=== PATIENT | female | born 1950 | race African-American/Black ===

== ENCOUNTER → 2020-07-24 10:23 | Outpatient (CLI) | payer MEDICARE, SELFPAY ==
--- NOTE | ~2020-07-24 | DEXA_ITS ---
Bone Density Report Name: Kelli Matt Age: 70 Sex: Female Ethnicity: White Date of : 1950 Indication: postmenopausal; screening for osteoporosis; parental hip fracture; Referring Provider: ANAIS PALAM Study: Bone densitometry was performed. Exam Date: July 24, 2020 Accession number: [id number] Bone Density: Region BMD T-score Z-score Classification AP Spine (L1-L4) 1.088 0.4 2.5 Normal Femoral Neck (Left) 0.772 -0.7 1.1 Normal Total Hip (Left) 0.913 -0.2 1.2 Normal Femoral Neck (Right) 0.789 -0.5 1.2 Normal Total Hip (Right) 0.902 -0.3 1.1 Normal Total Hip Mean 0.908 -0.3 1.2 Normal World Health Organization criteria for BMD impression classify patients as: Normal (T-score at or above -1.0), Osteopenia (T-score between -1.0 and -2.5), or Osteoporosis (T-score at or below -2.5). 10-year Fracture Risk: FRAX not reported because: All T-scores for Spine Total, Hip Total, Femoral Neck at or above -1.0 Previous Exams: Region Exam Age BMD T-score BMD Change BMD Change Date g/cm2 vs Baseline vs Previous AP Spine(L1-L4) 07/24/2020 70 1.088 0.4 0.056* 0.056* 05/20/2018 68 1.033 -0.1 Total Hip(Left) 07/24/2020 70 0.913 -0.2 -0.017 -0.017 05/20/2018 68 0.930 -0.1 Total Hip(Right) 07/24/2020 70 0.902 -0.3 0.009 0.009 05/20/2018 68 0.893 -0.4 *Denotes significance at 95% confidence level, LSC for AP Spine = 0.022 g/cm2, LSC for Total Hip = 0.027 g/cm2 Clinical Information Provided by Patient: Parent has had a hip fracture Patient maximum height was 67 Menopause Age: 54 Drinks caffeinated beverages Onset of menses at age 12 Number of children 2 Impression: The patient has normal bone mass. The patient has risk factors, including: parental hip fracture. No significant bone loss was observed. Discussion: BONE DENSITY IS ABOVE THE MINIMUM DESIRABLE LEVEL AT ALL SKELETAL SITES TESTED. This patient?s bone mineral density is above the minimum desirable level (T-score -1.0 or better) at all sites measured. The patient should follow a healthful lifestyle (good nutrition with adequate calcium and vitamin D, and appropriate weight-bearing exercise). Follow-Up: Consider repeating this study in 5 years or sooner if there is some new clinical indication. Reported by: [facility] on 07/24/2020 11:04:00 AM. Reviewed,
== END ==
PROVIDERS: PCP Emergency Medicine; Visit Provider Emergency Medicine
DX: N95.9 Unspecified menopausal and perimenopausal disorder (principal)
CPT/HCPCS: 77080

== ENCOUNTER 2020-07-25 06:39 | Outpatient (NON) | payer MEDICARE, SELFPAY ==
[2020-07-25 23:55] LABS: SARS-CoV-2 RNA PCR Negative
== END 2020-07-25 06:40 ==
PROVIDERS: PCP Emergency Medicine; Visit Provider Emergency Medicine
DX: Z20.828 Contact with and (suspected) exposure to other viral communicable diseases (principal); R68.89 Other general symptoms and signs
CPT/HCPCS: 87635; C9803; U0003

== ENCOUNTER 2020-10-12 14:58 | Outpatient (CLI) | payer MEDICARE, SELFPAY ==
--- NOTE | ~2020-10-12 | MR_ITS ---
EXAMINATION: MR knee RT wo con DATE: 10/12/2020 16:05 INDICATION: Right knee pain with prior horn lateral meniscus. TECHNIQUE: Magnetic resonance imaging (MRI) of the right knee was performed without intravenous contr ast. Sequences included coronal PD-weighted FSE, coronal PD-weighted FS FSE, sagittal T2-weighted FS E, sagittal PD-weighted FS FSE and axial PD weighted fat saturated FSE. COMPARISON: None. FINDINGS: Medial compartment: There is a defect with smooth concave contour along the free edge of the body of the medial meniscus with slight truncation of the normally sharp or free edge potentially representing site of a prior pa rtial meniscectomy. Additional loss of meniscal tissue at the lateral side of the posterior horn of t he medial meniscus which could also represent site of a prior partial mastectomy. Prominent increased intrasubstance signal in the intervening posterior horn and posterior body of the medial meniscus wh ich does not unambiguously contact the articular surfaces consistent with mucoid degeneration. Deep c hondral ulceration with irregular chondral surface along the anterior to central weightbearing medial femoral condyle. Small region of cortical irregularity and mild surrounding edema along the medial a spect of the anterior weightbearing medial femoral condyle. Lateral compartment: Linear increased signal of less than fluid intensity extending to contact the inferior articular surf darrian at the posterior horn of the lateral meniscus which could represent either a meniscal tear or sca rring related to a previously repaired tear. Slight truncation of the normally sharply anterior free edge of the posterior horn which could also represent sequela of tear or partial meniscectomy. There is an irregular contour to the anterior horn of the lateral meniscus with prominent increased signal contacting the articular surface at multiple locations consistent with a likely macerated tear. Parti al-thickness chondral ulceration and fissuring without degenerative subchondral changes along the lat eral tibial plateau. Small region of additional partial thickness chondral fissuring without degenera tive subchondral changes at the medial side of the anterior weightbearing lateral femoral condyle. Patellofemoral compartment: Extensive deep chondral ulceration at the lateral patellar facet with small region of mild subarticul ar edema at the superolateral aspect of the lateral facet. Scattered deep chondral fissuring with tin y foci of subarticular edema at the apical ridge and medial facet. Small region of deep chondral ulce ration with mild underlying cortical irregularity and minimal subarticular edema at the cephalad aspe ct of the lateral trochlea. A severe partial thickness chondral fissuring at the medial trochlea. Ligaments and tendons: Anterior and posterior cruciate ligaments are normal. The medial collateral ligament and fibular aldo ateral ligament complex are normal. Mild distal quadriceps tendinopathy. Patellar tendon is normal. T he visualized medial and lateral hamstring tendons as well as the iliotibial band are normal. Fluid: Small right knee joint effusion at the suprapatellar pouch. No loose osteochondral bodies identified. Mild prepatellar edema without discrete bursal fluid collection. Tiny Berumen's cyst. Osseous/other: Bone alignment is normal. Cystic change in the proximal tibia near the root of the posterior cruciate ligament and posterior horn of the medial meniscus. No fracture or pathologic marrow replacing proce ss. Subsequently varicosities along the lateral side of the knee. IMPRESSION: 1. Abnormal contour to the along the inner free edge of the body and posterior horn of the medial men iscus which could represent meniscal tears or more likely sites of prior partial meniscectomies. Ther e is intrasubstance mucoid degeneration along the intervening menis
== END 2020-10-12 14:59 | disposition home or self-care (01) ==
PROVIDERS: PCP Emergency Medicine; Visit Provider Emergency Medicine
DX: M25.30 Other instability, unspecified joint (principal); S89.91XA Unspecified injury of right lower leg, initial encounter; Z87.828 Personal history of other (healed) physical injury and trauma; M23.8X1 Other internal derangements of right knee; M17.11 Unilateral primary osteoarthritis, right knee; M94.261 Chondromalacia, right knee; M25.461 Effusion, right knee; M71.21 Synovial cyst of popliteal space [Baker], right knee
CPT/HCPCS: 73721

== ENCOUNTER → 2021-02-22 06:34 | Outpatient (CLI) | payer MEDICARE, SELFPAY ==
[2021-02-22 19:49] LABS: SARS-CoV-2 RNA PCR Negative
== END ==
PROVIDERS: PCP Emergency Medicine; Visit Provider Emergency Medicine
DX: Z20.822 Contact with and (suspected) exposure to COVID-19 (principal); R09.89 Other specified symptoms and signs involving the circulatory and respiratory systems
CPT/HCPCS: C9803; U0003; U0005

== ENCOUNTER → 2021-06-25 15:00 | Outpatient (CLI) | payer MEDICARE, SELFPAY ==
--- NOTE | ~2021-06-25 | MM_ITS ---
EXAMINATION: MM screening [facility] BI w shila HISTORY: Screening TECHNIQUE: Craniocaudal and mediolateral oblique 3-D tomosynthesis images were obtained and synthetic 2-D images were generated. CAD analysis was submitted and interpreted. COMPARISON: 05/20/2018 BREAST PARENCHYMAL COMPOSITION: The breasts are heterogeneously dense, which may obscure small masses . FINDINGS: No significant change to benign-appearing breast calcifications. There is no evidence of alejandra spicious mass, calcification, or architectural distortion to suggest malignancy in either breast. The re has been no suspicious interval change. IMPRESSION: 1. No mammographic evidence of malignancy. 2. Recommend routine screening mammography in one year. BI-RADS Category 1: Negative Reviewed, dictated and finalized at location A.
== END ==
PROVIDERS: PCP Emergency Medicine; Visit Provider Emergency Medicine
DX: Z12.31 Encounter for screening mammogram for malignant neoplasm of breast (principal)
CPT/HCPCS: 77063; 77067

== ENCOUNTER → 2021-10-05 09:54 | Outpatient (CLI) | payer MEDICARE, SELFPAY ==
--- NOTE | ~2021-10-05 | MR_ITS ---
EXAMINATION: MR lumbar spine wo con EXAM DATE: 10/05/2021 10:34 INDICATION: Lumbar radicular pain chronic right sided lbp (since 1994), no trauma, no ca. TECHNIQUE: Multi-sequential, multiplanar MR images of the lumbar spine were obtained without contrast . Sagittal T1, T2, T2 fat saturation images. Axial T2 weighted images. There is no prior study for comparison. FINDINGS: Moderate to severe disc disease L2-3, moderate at L3-4. The conus medullaris terminates at the L1/2 level and has normal signal intensity and morphology. There are some degenerative endplate s ignal changes L2-3. There are no suspicious focal vertebral signal abnormalities identified. The jase tebral bodies are aligned in the AP dimension. Paraspinal soft tissue is unremarkable. Level by level evaluation: T12-L1: Disc does not extend beyond the endplate margin. Facet arthropathy: Mild. Neural foraminal stenosis: No stenosis. Central canal stenosis: No stenosis. L1-L2: There is a mild diffuse disc bulge. Facet arthropathy: Mild. Neural foraminal stenosis: No stenosis. Central canal stenosis: No stenosis. L2-L3: There is a moderate diffuse disc bulge. Facet arthropathy: Mild to moderate. Neural foraminal stenosis: Mild bilateral. Central canal stenosis: No stenosis. L3-L4: There is a mild to moderate diffuse disc bulge. Facet arthropathy: Mild to moderate. Neural foraminal stenosis: Mild to moderate left, mild right. Central canal stenosis: No stenosis. L4-L5: There is a mild to moderate diffuse disc bulge. Facet arthropathy: Mild to moderate. Neural foraminal stenosis: Mild to moderate bilateral. Central canal stenosis: No stenosis. L5-S1: There is a mild diffuse disc bulge. Facet arthropathy: Mild. Neural foraminal stenosis: Mild bilateral. Central canal stenosis: No stenosis. IMPRESSION: Overall moderate lumbar spondylosis. Reviewed, dictated and finalized at location A. T CULLER
== END ==
PROVIDERS: PCP Emergency Medicine
DX: M54.16 Radiculopathy, lumbar region (principal); M47.816 Spondylosis without myelopathy or radiculopathy, lumbar region
CPT/HCPCS: 72148

== ENCOUNTER 2022-03-07 01:56 | Day surgery (SDC) | payer MEDICARE, SELFPAY ==
--- NOTE | 2022-02-24 09:51 | PC.NURSE ---
Report to the Outpatient Waiting Room, entrance under the green pavilion located off [facility], at time _0630 on date _03/07/22 . OR Time: _829 . - You and your visitor will be asked a series of questions to screen for COVID 19 for your protection. - Only one visitor is allowed at this time. - The patient visitor is requested to leave or wait in car when not with patient. - A mask is required within the hospital. Patients may have clear liquids (water, carbonated beverages, clear teas, apple juice) until 3 hours prior to surgery with a maximum of 20 ounces. - No food from midnight until time of surgery - Infants may have breast milk until 4 hours before surgery, infant formula 6 hours prior to surgery. - Children will be allowed to drink immediately following surgery. If applicable, please bring a bottle or sippy cup to assist with drinking. Juice, water, soda, and popsicles are readily available. For infants on formula, please bring formula the day of surgery. Pacifiers are allowed. Take the following medications with a SIP of water the morning of surgery: ___NONE Medications to discontinue per physician __ALL VITAMINS AND SUPPLEMENTS 3 DAYS PRE OP Date to take last dose___03/03/22 Please no make-up, nail indonesian, hairspray, perfume, deodorant, or body powder the day of surgery. No jewelry (including any body piercings) or valuables the day of surgery, leave them at home. Please take a shower or bath the night before, or the morning of, surgery with an antibacterial soap. Wear comfortable, loose fitting clothing. Children are encouraged to wear pajamas. - Jewelry must be removed prior to entering the operating room. Rings and piercings that are not removed may be cut off. - The hospital will not accept responsibility for valuables. - Please leave all valuables, including medications, at home the day of surgery. If you are going home after surgery, a licensed petrol tanker driver must drive you home. - NO public transportation without another adult. - We recommend that an adult stay with you for 24 hours following discharge. - We also recommend that you do not drive, make important decision, drink alcoholic beverages, or take any drugs that were not prescribed by your health care provider for at least 24 hours after your discharge time. For Pediatric surgeries, we recommend two adults accompany the child home (only one inside the building at this time). Follow any additional instructions given to you from your surgeon. If you or anyone in your household have experienced Covid symptoms in the past week, please notify your surgeon or the nurse liaison at the phone number below for possible testing. Telephone instructions given to __PATIENT and asked if any additional questions and then verbalized understanding. Patient advised to call surgeon office or pre surgery nurse liaison [phone] if any additional questions.
[2022-02-24 09:58] VITALS: BMI 25.5
--- NOTE | 2022-03-06 18:05 | P.PNAN_ITS ---
Anes - Initial Pre Proc Eval Procedure: Operation Date: 03/07/22 08:15 Proposed Procedures p Partial Plantar Fasciectomy Right Foot - Rupert Clifford JR, MD Date/Time: 03/06/22 18:05 Surgeon: Rupert Clifford JR, MD Pre Op Diagnosis: Plantar Fasciitis Rt Foot Patient Data Age: 72 Gender: F Height: 1.7 m Weight: 73.95 kg Allergies Allergy/AdvReac Type Severity Reaction Status Date / Time No Known Allergies Allergy Verified 03/07/22 07:11 Home Medications Medication Instructions Recorded Confirmed Type alprazolam 0.5 mg tablet (Xanax) 0.5 mg PO PRN PRN anxiety 02/24/22 02/24/22 History ascorbic acid 7.5 mg-vit E 7.5 1 tablet PO DAILY 02/24/22 03/07/22 History unit-biotin 1,250 mcg chewable tablet (Hair,Skin,Nails with Biotin) geriatric iron-vit B complex oral 1 ea PO DAILY 02/24/22 03/07/22 History liquid no.58-iron bisglycinate 2 cap PO DAILY 02/24/22 03/07/22 History 10 mg iron-folic acid 400 mcg capsule zinc 50 mg tablet 50 mg PO DAILY 02/24/22 03/07/22 History Patient hx anesthesia problems: none Family hx anesthesia problems: none Results Review: All pre-operative results and documents have been reviewed as part of the pre- operative evaluation. REPLACED BY [facility] Past Medical History Medical History (Updated 03/06/22 @ 18:05 by Anatoliy Nava MD) Anxiety Chronic low back pain with left-sided sciatica Hx of tear of meniscus of knee joint (~08/14/16) Joint instability Other screening mammogram Post menopausal problems Right knee injury Family History Family History Father Diabetes mellitus, Onset Age: 78 Social History Social History Smoking status: Never smoker Living arrangements: with family Spiritual care concerns: No Anes - Eval Final PreProcedure Day of Procedure 03/06/22 18:05 Patient weight: normal Heart: regular rate and rhythm Lungs: clear to auscultation and normal air movement Airway: Mallampati scale class II Neurological: alert and oriented Last oral intake: >/= 8 hours ASA classification: II Emergent: no Anesthetic plan: proceed Anesthesia type and monitoring: general GIVS Results Review: All pre-operative results and documents have been reviewed as part of the pre- operative evaluation. Informed Consent: The patient's anesthetic plan and its attendant risks and benefits were discussed with the patient/family/POA. Questions were solicited and answers provided to the satisfaction of the patient/family/POA.
[2022-03-07 06:41] VITALS: BP 114/60; PULSE 63; RESP 16; TEMP 36.2; O2SAT 99
--- NOTE | 2022-03-07 07:16 | WPDHPUPDATE1 ---
History and Physical Update Update Date/Time: 03/07/22 07:16 History and Physical has been reviewed, including an updated exam of the patient. There are NO changes in the patient's condition. Risks, benefits, and alternatives have been discussed and questions answered. Patient agrees to proceed with procedure.
[2022-03-07] MEDS: LACTATED RINGERS 1,000 ML 30 ML IV CONT (07:26)
[2022-03-07] MEDS: LIDOCAINE HCL 2% LOCAL INJ 20 ML VIAL 10 ML INFILTRATE (08:39)
[2022-03-07] MEDS: ceFAZolin 2 GM/D5W 50 ML 2 GM/50 ML BAG IVPB (08:55)
[2022-03-07 09:19] VITALS: BP 108/62; PULSE 51; RESP 15; O2SAT 100
--- NOTE | 2022-03-07 09:28 | P.OP_ITS ---
Procedure Note - Detailed Date of Procedure 03/07/22 Pre-op Diagnosis Plantar Fasciitis right Foot Post-op Diagnosis Same Procedure Performed Partial plantar fasciectomy right foot Surgeon Rupert Clifford JR, MARTINEZM Anesthesia MAC and Local Indications Chronic pain right inferior heel Description of Procedure Under mild sedation, the patient was brought in to the operating room, placed on the operating table in the supine position. A pneumatic ankle tourniquet was placed about the patient's ankle. Following general anesthesia, local anesthesia was obtained about the affected lower extremity utilizing 20 mL of a one to mix of 2% Lidocaine plain and 0.5% Marcaine plain to the tibial nerve. The foot was then scrubbed, prepped, and draped in the usual aseptic manner. An Esmarch bandage was then used to exsanguinate the patient's foot and the pneumatic ankle tourniquet was then inflated. Next, an incision was made starting distal to the medial tubercle of the calcaneus extending distally 3cm. All bleeders were cauterized as necessary. Next the dissection was continued down to the plantar fascia it was exposed medially and laterally with Army Zortman retractors. Two thirds of the medial plantar fascia was transected and a 4mm portion was also cut and discarded. The wound site was flushed with sterile saline. The deep subcutaneous tissue was reapproximated with 3.0 Vicryl and the skin was reapproximated with 2.0 Prolene and 3.0 Prolene in Vertical mattress and Simple interrupted suture technique. Upon completion of the procedure, the plantar incision was dressed with adaptic, 4x4 gauze, kerlix and coban. The pneumatic ankle tourniquet was then deflated and a prompt hyperemic response was noted to all digits of the affected foot. A CAM Walker boot was then applied. The patient did very well with the procedure and the anesthesia. The patient was transferred to the recovery room with vital signs stable and vascular status intact to all toes of the affected foot. Following a period of postoperative monitoring, the patient will be discharged home on the following written and oral postoperative instructions: 1. The patient should keep the dressing clean, dry, and intact. Use a cast protector bag with showers. 2. The patient will be strictly protected weight bearing with CAM walker boot. 3. Patient should ice and elevate the affected foot when at rest. 4. The patient is to contact Dr. Clifford for all postop care and if any problems arise. 5. Prescriptions were written for Percocet 5/325 dispensed 40 to be taken 1 p.o. q.4-6 hours as needed for severe pain. Estimated Blood Loss 1 Drains No Packing No Pathology None sent Complications No immediate complications Condition Stable Disposition Same day
[2022-03-07 09:50] VITALS: BP 112/61; PULSE 49
== END 2022-03-07 10:15 | disposition home or self-care (01) ==
PROVIDERS: PCP Emergency Medicine; Visit Provider Podiatrist Foot & Ankle Surgery
PROC: (CPT 28119; principal; 2022-03-07 08:15)
DX: M72.2 Plantar fascial fibromatosis (principal); F41.9 Anxiety disorder, unspecified
CPT/HCPCS: 28060; J0690; J1100; J2250; J2405; J2704; J3010; J7120

== ENCOUNTER → 2022-08-22 12:39 | Outpatient (CLI) | payer MEDICARE, SELFPAY ==
--- NOTE | ~2022-08-22 | MM_ITS ---
EXAMINATION: MM screening [facility] BI w shila HISTORY: Screening mammogram TECHNIQUE: Craniocaudal and mediolateral oblique 3-D tomosynthesis images were obtained and synthetic 2-D images were generated. CAD analysis was submitted and interpreted. COMPARISON: 06/25/2021, 05/20/2018 BREAST PARENCHYMAL COMPOSITION: The breasts are heterogeneously dense, which may obscure small masses . FINDINGS: No suspicious mass, calcification, or architectural distortion are identified in either xuan ast to suggest malignancy. There has been no suspicious interval change. IMPRESSION: 1. No mammographic evidence of malignancy. 2. Recommend routine screening mammography in one year. BI-RADS Category 1: Negative Reviewed, dictated and finalized at location A. ER PLANTER
== END ==
PROVIDERS: PCP Emergency Medicine; Visit Provider Emergency Medicine
DX: Z12.31 Encounter for screening mammogram for malignant neoplasm of breast (principal)
CPT/HCPCS: 77063; 77067

== ENCOUNTER → 2022-09-23 11:18 | Outpatient (CLI) | payer MEDICARE, SELFPAY ==
--- NOTE | ~2022-09-23 | DEXA_ITS ---
Bone Density Report Name: ALEX FOOTE Age: 72 Sex: Female Ethnicity: White Date of : 1950 Indication: postmenopausal; screening for osteoporosis; parental hip fracture; Referring Provider: ANAIS PALMA Study: Bone densitometry was performed. Exam Date: September 23, 2022 Accession number: [id number] Bone Density: Region BMD T-score Z-score Classification AP Spine (L1-L4) 1.070 0.2 2.4 Normal Femoral Neck (Left) 0.774 -0.7 1.2 Normal Total Hip (Left) 0.922 -0.2 1.4 Normal Femoral Neck (Right) 0.765 -0.8 1.1 Normal Total Hip (Right) 0.886 -0.5 1.1 Normal Total Hip Mean 0.904 -0.4 1.3 Normal World Health Organization criteria for BMD impression classify patients as: Normal (T-score at or above -1.0), Osteopenia (T-score between -1.0 and -2.5), or Osteoporosis (T-score at or below -2.5). 10-year Fracture Risk: FRAX not reported because: All T-scores for Spine Total, Hip Total, Femoral Neck at or above -1.0 Previous Exams: Region Exam Age BMD T-score BMD Change BMD Change Date g/cm2 vs Baseline vs Previous AP Spine(L1-L4) 09/23/2022 72 1.070 0.2 0.037* -0.018 07/24/2020 70 1.088 0.4 0.056* 0.056* 05/20/2018 68 1.033 -0.1 Total Hip(Left) 09/23/2022 72 0.922 -0.2 -0.008 0.009 07/24/2020 70 0.913 -0.2 -0.017 -0.017 05/20/2018 68 0.930 -0.1 Total Hip(Right) 09/23/2022 72 0.886 -0.5 -0.007 -0.016 07/24/2020 70 0.902 -0.3 0.009 0.009 05/20/2018 68 0.893 -0.4 *Denotes significance at 95% confidence level, LSC for AP Spine = 0.022 g/cm2, LSC for Total Hip = 0.027 g/cm2 Clinical Information Provided by Patient: Parent has had a hip fracture Has used the following medications: Vitamin D, Calcium Patient maximum height was 67 Menopause Age: 54 No regular weight bearing exercise Onset of menses at age 12 Number of children 2 Impression: The patient has normal bone mass. The patient has risk factors, including: parental hip fracture. No significant bone loss was observed. Discussion: BONE DENSITY IS ABOVE THE MINIMUM DESIRABLE LEVEL AT ALL SKELETAL SITES TESTED. This patient?s bone mineral density is above the minimum desirable level (T-score -1.0 or better) at all sites measured. The patient should follow a healthful lifestyle (good nutrition with adequate calcium and vitamin D, and appropri
== END ==
PROVIDERS: PCP Emergency Medicine; Visit Provider Emergency Medicine
DX: Z78.0 Asymptomatic menopausal state (principal)
CPT/HCPCS: 77080

== ENCOUNTER 2023-02-18 08:30 | Outpatient (CLI) | payer MEDICARE, SELFPAY ==
--- NOTE | 2023-02-18 08:44 | ECG_ITS ---
Measurements Intervals Ione Rate: 60 P: 67 GA: 145 QRS: -42 QRSD: 118 T: 32 QT: 426 QTc: 427 Interpretive Statements SINUS RHYTHM MARKED LEFT AXIS DEVIATION [QRS AXIS < -30] INCOMPLETE RIGHT BUNDLE BRANCH BLOCK [90+ ms QRS DURATION, TERMINAL R IN V1/V2, 40+ ms S IN I/aVL/V4/V5/V6] ABNORMAL ECG NO PREVIOUS ECG AVAILABLE FOR COMPARISON Electronically Signed On 02-18-2023 9:38:56 CDT by Raulito Brewer M.D.
== END 2023-02-18 08:31 | disposition home or self-care (01) ==
LOC: ANHCARD 08:32
PROVIDERS: PCP Emergency Medicine; Visit Provider Emergency Medicine
DX: R55 Syncope and collapse (principal); I45.10 Unspecified right bundle-branch block
CPT/HCPCS: 93005

== ENCOUNTER 2023-02-20 15:29 | Outpatient (CLI) | payer MEDICARE, SELFPAY ==
--- NOTE | ~2023-02-20 | CT_ITS ---
EXAMINATION: CT brain wo con INDICATION: Transient alteration of awareness COMPARISON: None TECHNIQUE: Standard unenhanced head CT. The dose-length product (DLP) was 605.33 mGy-cm. The mA was a djusted according to patient size. Iterative reconstruction technique was employed. FINDINGS: There is no acute intraparenchymal hemorrhage. No evidence of mass lesion. No evidence of a cute infarction. There appears to be a small arachnoid cyst in the left posterior fossa adjacent to t he cerebellum. There is mild periventricular and subcortical hypodensity probably related to small ve ssel ischemic disease. There is mild prominence of the sulci and ventricles related to cerebral atrop hy. Intracranial calcified cerebral atherosclerosis is noted. There are no extra-axial collections. T here is no mass effect or midline shift. The orbits and soft tissues are unremarkable. The visualized sinuses and mastoid air cells are well aerated. IMPRESSION: 1. No acute intracranial abnormality. 2. Age related findings. Reviewed, dictated and finalized at location F.
== END 2023-02-20 15:30 | disposition home or self-care (01) ==
PROVIDERS: PCP Emergency Medicine; Visit Provider Emergency Medicine
DX: R55 Syncope and collapse (principal)
CPT/HCPCS: 70450

== ENCOUNTER 2023-03-03 15:43 | Outpatient (CLI) | payer MEDICARE, SELFPAY ==
--- NOTE | ~2023-03-03 | US_ITS ---
EXAMINATION: US carotid duplex BI DATE: 03/03/2023 16:15 INDICATION: Syncope. TECHNIQUE: Grayscale, color Doppler, and pulsed Doppler images of the cervical carotid arteries were obtained. The degree of vessel stenosis is placed in one of the following categories: normal, <50%, 5 0-69%, >=70% but less than near-occlusion, near-occlusion, or total occlusion. Note that percent sten osis relative to normal distal artery lumen diameter is indirectly measured from velocity measurement s as described by Ji, et al. Radiology 2003; 229:340-346. Notes: Normal: Peak systolic velocity <125 centimeters/sec and no plaque <50%. Peak systolic velocity <125 ( EDV <40; ICA/CCA PSV ratio <2.0; used these factors only a tandem lesions or low cardiac output or co ntralateral disease) 50-69 %: PSV 125-230 (EDV 40-100; ratio 2-4) >= 70% but less than near occlusion: PSV greater than 230 (EDV > 100; ratio> 4.0) Near Occlusion: PSV that is variable; markedly narrowed lumen Occlusion: Absent flow on color/spectral Doppler and no lumen on alexander scale. COMPARISON: None. FINDINGS: RIGHT: The right common carotid artery (CCA) peak systolic velocity (PSV) is 93 cm/s. The right internal car otid artery (ICA) PSV is 137 cm/s. The right ICA end-diastolic velocity (EDV) is 46 cm/s. The right I CA/CCA PSV ratio is 1.5. The external carotid artery (ECA) PSV is 91 cm/s. There is antegrade flow in the right vertebral artery. LEFT: The left CCA PSV is 99 cm/s. The left ICA PSV is 104 cm/s. The left ICA EDV is 38 cm/s. The left ICA/ CCA PSV ratio is 1.1. The ECA PSV is 83 cm/s. There is antegrade flow in the left vertebral artery. IMPRESSION: 1. 50-69% stenosis in the right internal carotid artery by sonographic criteria. 2. Less than 50% stenosis in the left internal carotid artery by sonographic criteria. Reviewed, dictated and finalized at location L. IMPRESSION: 1. 50-69% stenosis in the right internal carotid artery by sonographic criteria . 2. Less than 50% stenosis in the left internal carotid artery by sonographic cr iteria.
== END 2023-03-03 15:44 | disposition home or self-care (01) ==
PROVIDERS: PCP Emergency Medicine; Visit Provider Emergency Medicine
DX: R55 Syncope and collapse (principal); I65.23 Occlusion and stenosis of bilateral carotid arteries
CPT/HCPCS: 93880

== ENCOUNTER → 2023-04-14 09:15 | Outpatient (CLI) | payer MEDICARE, SELFPAY ==
--- NOTE | ~2023-04-14 | MR_ITS ---
MRI of the right knee Clinical history: Internal derangement Technique: Coronal proton density and proton density-weighted images, sagittal proton-density and T2 fat-sat images, and axial proton-density fat-saturated images were acquired. COMPARISON: 10/12/2020 Findings: Anterior and posterior cruciate ligaments are intact, both of which demonstrate mild increa sed signal, similar to prior exam. Medial collateral ligament and the lateral collateral ligament com plex are intact. Mild thickening and increased signal at the proximal fibular collateral ligament is unchanged, compatible with chronic findings. Marked intrasubstance degenerative signal of the posterior horn and body of medial meniscus is though t to prior exam, as is marked thinning/deficiency at the posterior root of the medial meniscus. Anter ior horn of the medial meniscus appears essentially intact. There is probable horizontal/complex tear ing of the anterior horn and body of the lateral meniscus, versus postmeniscectomy change, which is o verall similar in appearance to prior exam. There is patchy moderate to high-grade chondromalacia over the medial femoral condyle, similar to morales or exam. There are focal areas of moderate chondromalacia along the lateral tibial plateau. There is moderate to high-grade chondromalacia over the lateral patellar facet. Femoral trochlear cartilage is well preserved. Small tricompartmental osteophytes are present. Extensor mechanism is intact. There is minimal joint effusion. No Berumen's cyst. Impression: Overall, probably no significant interval change as compared to prior exam dated 10/12/2020. Marked thinning/deficiency the posterior root of the medial meniscus could reflect chronic radial tea r versus postmastectomy change. Stable severe intrasubstance degenerative signal in the posterior hor n and body of the medial meniscus. Chronic tearing versus possibly postmeniscectomy change involving the anterior horn and body lateral meniscus, stable. Tricompartmental degenerative change, as detailed above, worst in the medial compartment, again overa ll similar to prior exam. Reviewed, dictated and finalized at location M. Impression: Overall, probably no significant interval change as compared to prior exam date d 10/12/2020. Marked thinning/deficiency the posterior root of the medial meniscus could refl ect chronic radial tear versus postmastectomy change. Stable severe intrasubsta nce degenerative signal in the posterior horn and body of the medial meniscus. Chronic tearing versus possibly postmeniscectomy change involving the anterior horn and body lateral meniscus, stable. Tricompartmental degenerative change, as detailed above, worst in the medial co mpartment, again overall similar to prior exam.
== END ==
DX: M17.11 Unilateral primary osteoarthritis, right knee (principal)
CPT/HCPCS: 73721

== ENCOUNTER 2024-01-14 10:01 | Outpatient (CLI) | payer OTHER, SELFPAY ==
--- NOTE | ~2024-01-14 | MM_ITS ---
EXAMINATION: MM screening pau BI w shila HISTORY: Screening mammogram TECHNIQUE: Craniocaudal and mediolateral oblique 3-D tomosynthesis images were obtained and synthetic 2-D images were generated. CAD analysis was submitted and interpreted. COMPARISON: 08/22/2022, 06/25/2021 bilateral screening mammogram examinations BREAST PARENCHYMAL COMPOSITION: The breasts are heterogeneously dense, which may obscure small masses . FINDINGS: Occasional benign calcifications. There is no evidence of suspicious mass, calcification, o r architectural distortion to suggest malignancy in either breast. There has been no suspicious inter moody change. IMPRESSION: 1. No mammographic evidence of malignancy. 2. Recommend routine screening mammography in one year. BI-RADS Category 2: Benign finding(s). Reviewed, dictated and finalized at location A.
== END 2024-01-14 10:02 ==
LOC: MICIMG 10:02
PROVIDERS: PCP Emergency Medicine; Visit Provider Emergency Medicine
DX: Z12.31 Encounter for screening mammogram for malignant neoplasm of breast (principal)
CPT/HCPCS: 77063; 77067

== ENCOUNTER 2024-06-17 10:38 | Outpatient (CLI) | payer OTHER, SELFPAY ==
--- NOTE | ~2024-06-17 | XR_ITS ---
Right Knee Technique: AP, lateral, and sunrise views were obtained. Clinical History: Pain Findings: No fracture or dislocation is seen. Osseous alignment is anatomic. Joint spaces are preserv ed without degenerative or erosive change. Chondrocalcinosis of the menisci noted. No joint effusion is seen. Impression: No acute abnormality. Chondrocalcinosis of the menisci. Reviewed, dictated and finalized at location . Impression: No acute abnormality. Chondrocalcinosis of the menisci.
== END 2024-06-17 10:39 | disposition home or self-care (01) ==
LOC: MICIMG 10:39
PROVIDERS: PCP Emergency Medicine; Visit Provider Orthopaedic Surgery
DX: M25.561 Pain in right knee (principal); M11.261 Other chondrocalcinosis, right knee
CPT/HCPCS: 73564

== ENCOUNTER 2024-07-06 09:44 | Outpatient (CLI) | payer OTHER, SELFPAY ==
--- NOTE | ~2024-07-06 | XR_ITS ---
XR knee LT min 4V 07/06/2024 09:59 Indication: Left knee pain Procedure: 4 views left knee Comparison: No prior studies for comparison. Findings: No fracture, subluxation or dislocation. No significant joint effusion. No foreign bodies. There is moderate medial compartmental joint space narrowing. No foreign bodies. 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 Reviewed, dictated and finalized at location B. 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
== END 2024-07-06 09:45 | disposition home or self-care (01) ==
LOC: MICIMG 09:45
PROVIDERS: PCP Emergency Medicine; Visit Provider Orthopaedic Surgery
DX: M17.12 Unilateral primary osteoarthritis, left knee (principal)
CPT/HCPCS: 73564

== ENCOUNTER 2024-08-25 07:44 | Outpatient (CLI) | payer OTHER, SELFPAY ==
--- NOTE | ~2024-08-25 | US_ITS ---
EXAMINATION: US carotid duplex BI DATE: 08/25/2024 08:32 INDICATION: Carotid artery stenosis or occlusion. TECHNIQUE: Grayscale, color Doppler, and pulsed Doppler images of the cervical carotid arteries were obtained. The degree of vessel stenosis is placed in one of the following categories: normal, <50%, 5 0-69%, >=70% but less than near-occlusion, near-occlusion, or total occlusion. Note that percent sten osis relative to normal distal artery lumen diameter is indirectly measured from velocity measurement s as described by Ji, et al. Radiology 2003; 229:340-346. COMPARISON: None. FINDINGS: RIGHT: The right common carotid artery (CCA) peak systolic velocity (PSV) is 85 cm/s. The right internal car otid artery (ICA) PSV is 86 cm/s. The right ICA end-diastolic velocity (EDV) is 32 cm/s. The right IC A/CCA PSV ratio is 1.0. Grayscale and color Doppler images yield an estimate of <50% diameter reducti on from plaque in the ICA. The external carotid artery (ECA) PSV is 51 cm/s. There is antegrade flow in the right vertebral artery. LEFT: The left CCA PSV is 75 cm/s. The left ICA PSV is 92 cm/s. The left ICA EDV is 29 cm/s. The left ICA/C CA PSV ratio is 1.2. Grayscale and color Doppler images yield an estimate of <50% diameter reduction from plaque in the ICA. The ECA PSV is 58 cm/s. There is antegrade flow in the left vertebral artery. IMPRESSION: 1. <50% stenosis from minimal in the right internal carotid artery. 2. <50% stenosis from minimal in the left internal carotid artery. Reviewed, dictated and finalized at location A. 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
== END 2024-08-25 07:45 | disposition home or self-care (01) ==
PROVIDERS: PCP Emergency Medicine; Visit Provider Internal Medicine Cardiovascular Disease
DX: I65.23 Occlusion and stenosis of bilateral carotid arteries (principal)
CPT/HCPCS: 93880

== ENCOUNTER 2024-09-22 09:09 | Outpatient (CLI) | payer OTHER, SELFPAY ==
--- NOTE | ~2024-09-22 | NM_ITS ---
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 Preprocedural cardiovascular examination. TECHNIQUE: Rest images were obtained following intravenous administration of 9.6 mCi Tc99m tetrofosmi n (Myoview). The patient was infused intravenously with Lexiscan (regadenoson). Then, 30 mCi Tc99m te trofosmin (Myoview) was administered intravenously, and stress images were obtained. Data was reconst ructed into short axis and horizontal and vertical long axis SPECT images. Gated SPECT images were al so obtained. COMPARISON: None. FINDINGS: There is no definite reversible or fixed perfusion abnormality to suggest ischemia or infar ction. There is no segmental wall motion abnormality. Left ventricular ejection fraction measures 6 5%. IMPRESSION: 1. No definite ischemia or infarct. 2. Normal left ventricular ejection fraction measuring 65%. Reviewed, dictated and finalized at location B. 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
--- NOTE | 2024-09-22 09:32 | EST_ITS ---
Patient Info Name: Kelli Matt Age: 74 years : 1950 Gender: Female Ht: 66 in Wt: 149 lbs BSA: 1.78 m2 HR: 59 bpm BP: 112 / 78 mmHg Heart Rhythm: Sinus Rhythm Exam Date: 09/22/2024 10:23 AM Exam Location: Echo Lab Patient Status: Outpatient Admit Date: 09/22/2024 Staff Ordering Physician: Ba Badillo DO Attending Provider: Ba Badillo DO Exercise Technologist: Ave Huynh CT Exercise Physician: Ba Badillo DO Exam Type: CA stress candi w NM Study Info Indications Z01.810 - Encounter for preprocedural cardiovascular examination R06.09 - Other forms of dyspnea A regadenoson stress test was performed. Summary 1. 1. Negative lexiscan stress test for ischemic ST changes by ECG criteria. 2. 2. Stable hemodynamics throughout the test. 3. 3. Nuclear scan to follow and will be reported separately. Please correlate with it. 4. 4. Patient informed of the above results. Protocol: Lexiscan Stress ECG Details Stage: REST Duration (min): 1 min : 17 sec HR (bpm): 61 SBP (mmHg): 123 DBP (mmHg): 91 Stage: REST Duration (min): 9 min : 4 sec HR (bpm): 59 SBP (mmHg): 123 DBP (mmHg): 91 Stage: STAGE 1 Duration (min): 0 min : 59 sec HR (bpm): 72 SBP (mmHg): 112 DBP (mmHg): 78 Stage: RECOVERY Duration (min): 1 min : 0 sec HR (bpm): 96 SBP (mmHg): 112 DBP (mmHg): 78 Stage: RECOVERY Duration (min): 2 min : 0 sec HR (bpm): 84 SBP (mmHg): 112 DBP (mmHg): 78 Stage: RECOVERY Duration (min): 3 min : 0 sec HR (bpm): 75 SBP (mmHg): 128 DBP (mmHg): 74 Stage: RECOVERY Duration (min): 4 min : 0 sec HR (bpm): 83 SBP (mmHg): 128 DBP (mmHg): 74 Stage: RECOVERY Duration (min): 4 min : 7 sec HR (bpm): 86 SBP (mmHg): 128 DBP (mmHg): 74 Rest HR: 59 bpm Peak HR: 96 bpm Rest Sys BP: 123 mmHg Peak Sys BP: 128 mmHg Max Pred HR: 147 bpm % Max Pred HR: 65 % Target HR: 125 bpm Max RPP: 12,288 bpm*mmHg Termination Reason: Completed protocol Cardiac Symptoms: Shortness of breath, Headache Total Time: 1 min : 0 sec Rest Aparicio BP: 91 mmHg Peak Aparicio BP: 74 mmHg Total Dose: 0.4 mg Resting ECG Sinus bradycardia, IRBBB, LAFB. Stress ECG No ST changes. Arrhythmias None. Report Signatures
== END 2024-09-22 09:10 | disposition home or self-care (01) ==
PROVIDERS: PCP Emergency Medicine; Visit Provider Internal Medicine Cardiovascular Disease
DX: Z01.810 Encounter for preprocedural cardiovascular examination (principal); R06.09 Other forms of dyspnea
CPT/HCPCS: 78452; 93017; A9502; J2785

== ENCOUNTER 2024-12-02 13:26 | Outpatient (CLI) | payer OTHER, SELFPAY ==
--- OUTSIDE RECORDS SUMMARY | 2024-12-02 13:54 | XMS_ITS | Clinical Summary ---
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 Gender Identity Not on file Sexual Orientation Not on file Plan of Treatment Health Maintenance Due Date Last Done Comments DTAP/TDAP/TD VACCINES (1 - Tdap) 1970 BREAST CANCER SCREENING 1991 COLORECTAL SCREENING 01/14/1996 Colorectal Cancer Screening 01/14/1996 FIT-DNA Q 3 years 01/14/1996 FIT/FOBT Q 1 year 01/14/1996 Flex Sig/CT Colonography Q 5 years 01/14/1996 PNEUMOCOCCAL VACCINE 50+ YEARS (1 of 1 - PCV) 01/14/20 ZOSTER VACCINE (1 of 2) 2001 OSTEOPOROSIS SCREENING 01/14/2016 INFLUENZA VACCINE (#1) 2024 RSV VACCINE (60+ or ) (1 - 1-dose 75+ series) 2026 Care Teams Hand Driller Relationship Specialty [place] [address] [place] [address] PCP - General Internal Medicine 01/30/10
--- OUTSIDE RECORDS SUMMARY | 2024-12-02 13:54 | XMS_ITS | Continuity of Care Document ---
Author Organization [facility] Address [address] [facility] [address] [place] [address] Phone Care Team Providers Care Mend Worker Name Role Phone Lalita Joseph MD Unavailable Unavailabl e Allergies, Adverse Reactions, Alerts Substance Reaction Status Criticality No Known Allergies Active No Inform ation Medications Medication Instructions Dosage Effective Dates (start - stop) Status Comments meloxicam 15 mg tablet take 1 tablet by oral route every day 15 MG - Active Procedures Procedure Date OFFICE/OUTPATIENT VISIT EST RADEX KNE COMPL 4/MORE VIEWS Methylprednisolone 80mg/ml inj 24 Ropivacaine HCl injection DRAIN/INJECT JOINT/BURSA OFFICE/OUTPATIENT VISIT EST Methylprednisolone 80mg/ml inj 23 Ropivacaine HCl injection DRAIN/INJECT JOINT/BURSA OFFICE/OUTPATIENT VISIT EST POSTOP FOLLOW-UP VISIT KNEE ARTHROSCOPY/SURGERY OFFICE/OUTPATIENT VISIT EST RADEX KNE COMPL 4/MORE VIEWS OFFICE/OUTPATIENT VISIT NEW POSTOP FOLLOW-UP VISIT POSTOP FOLLOW-UP VISIT POSTOP FOLLOW-UP VISIT OFFICE/OUTPATIENT VISIT EST MRI ANY JT LXTR C-MATRL RADEX KNE 3 VIEWS OFFICE/OUTPATIENT VISIT EST OFFICE/OUTPATIENT VISIT EST OFFICE/OUTPATIENT VISIT EST MRI ANY JT UXTR C-MATRL OFFICE/OUTPATIENT VISIT NEW Advance Directives Directive Yes / No Effective Date File Name Other Directive No N/A N/A WARNING:The information contained in this section is historical and is provided for information only and does not constitute a legal document or any assurance that the information is still accurate. Please verify the information with the fabian of the legal document before using it for clinical purposes. Encounters Encounter Description Practice Location Reason(s) For Visit Diagnoses Date Provider Providers Copied on Encounter OFFICE/OUTPA TIENT VISIT EST [facility], [address], [facility], tel:[phone] [facility] S/P right knee arthroscopy 4 L'Hommedieu Costilla. [address] [place], [place], [address]. tel:[phone] Referring Provider: Pablo Sotelo, [address] [place] [address], [address] . tel:[phone] OFFICE/OUTPA TIENT VISIT EST [facility], [address], [facility], tel:[phone] [facility] S/P right knee arthroscopyCho ndromalacia, right kneeInternal derangement of right knee 4 L'Hommedieu Costilla. [address] [place], [place], [address]. tel:[phone] Referring Provider: Pablo Sotelo, [address] [place] [address], [address] . tel:[phone] [facility], [address], [address], tel:[phone] [facility] S/P right knee arthroscopyRig ht knee pain, unspecified chronicity 3 L'Hommedieu Costilla. [address] [place], [place], [address]. tel:[phone] OFFICE/OUTPA TIENT VISIT EST [facility], [address], [address], [place] tel:[phone] [facility] Chondromalacia , right kneeS/P right knee arthroscopy 3 Susiemalgorzata Umana. [address] [facility] #[facility], [place], [address]. tel:[phone] Referring Provider: Pablo Sotelo, [address] [place] [address], [address] . tel:[phone] [facility], [address], [address], [place] tel:[phone] [facility] S/P right knee arthroscopy 3 Susiemalgorzata Lyndsay. [address] [facility] #[facility], [place], [address]. tel:[phone] Referring Provider: Pablo Sotelo, [address] [place] [address], [address] . tel:[phone] [facility], [address], [address], [place] tel:[phone] [facility] Complex tear of lateral meniscus, current injury, right knee, initial encounterOther tear of medial meniscus, current injury, right knee, initial encounter 3 L'Hommedieu Costilla. [address] [place], [place], [address]. tel:[phone] [facility], [address], [address], [place] tel:[phone] [facility] Tear of lateral meniscus of right knee, current, unspecified tear type, initial encounterTear of medial meniscus of right knee, current, unspecified tear type, initial encounterChond romalacia, right knee 3 L'Hommedieu Costilla. [address] [place], [place], [address]. tel:[phone] OFFICE/OUTPA TIENT VISIT EST [facility], [address], [address], [place] tel:[phone] [facility] Tear of medial meniscus of right knee, current, unspecified tear type, initial encounterTear of lateral meniscus of right knee, current, unspecified tear type, initial encounterChond romalacia, right knee 3 L'Hommedieu Costilla. [address] [place], [place], [address]. tel:[phone] Referring Provider: Pablo Sotelo, [address] [place] [address], [address] . tel:[phone] [facility], [address], [address], [place] tel:[phone] [facility] Internal derangement of right knee 3 L'Hommedieu Costilla. [address] [place], [place], [address]. tel:[phone] OFFICE/OUTPA TIENT VISIT NEW [facility], [address], [address], [place] tel:[phone] [facility] Chronic pain of right kneeInternal derangement of right knee 3 L'Hommedieu Costilla. [address] [place], [place], [address]. tel:[phone] Referring Provider: Pablo Sotelo, [address] [place] [address], [address] . tel:[phone] [facility], [address], [address], [place] tel:[phone] [facility] S/P right knee arthroscopyOth er meniscus derangements, other lateral meniscus, right knee Feb-2 0-201 7 Ymnor Andrey. [address] [place], [place], [address]. tel:[phone] [facility], [address], [address], [place] tel:[phone] [facility] S/P right knee arthroscopyOth er meniscus derangements, other lateral meniscus, right knee 7 Mynor Andrey. [address] [place], [place], [address]. tel:[phone] Referring Provider: Pablo Sotelo, [address] [place] [address], [address] . tel:[phone] [facility], [address], [address], [place] tel:[phone] [facility] S/P right knee arthroscopy 6 Mynor Andrey. [address] [place], [place], [address]. tel:[phone] [facility], [address], [address], [place] tel:[phone] [facility] S/P right knee arthroscopy 6 Mynor Andrey. [address] [place], [place], [address]. tel:[phone] OFFICE/OUTPA TIENT VISIT EST [facility], [address], [address], [place] tel:[phone] [facility] Tear of medial meniscus of right knee, current, unspecified tear type, initial encounterOther meniscus derangements, posterior horn of medial meniscus, right kneeOther meniscus derangements, other lateral meniscus, right kneeChondromal acia of patella, right 6 Mynor Andrey. [address] [place], [place], [address]. tel:[phone] Referring Provider: Pablo Sotelo, [address] [place] [address], [address] . tel:[phone] [facility], [address], [address], [place] tel:[phone] [facility] No Information 6 No Information Referring Provider: Andrey Lowe, [address], [place], [address] . tel:[phone] OFFICE/OUTPA TIENT VISIT EST [facility], [address] [facility] [address] [address], [place], [address], [place] tel:[phone] [facility] Right knee pain, unspecified chronicityInte rnal derangement of right kneeSubacromia l impingement of left shoulder Nov- 0- 6 Mynorvictor manuel Bal[address]. [address] , [place], [place], [address]. tel:[phone] OFFICE/OUTPA TIENT VISIT EST [facility], [address] [address], [place], [address], [place] tel:[phone] [facility] Subacromial impingement of left shoulder Sep-2 6 Mynorvictor manuel Balder[address]. [address] , [place], [place], [address]. tel:[phone] OFFICE/OUTPA TIENT VISIT EST [facility], [address] [address], [place], [address], [place] tel:[phone] [facility] Subacromial impingement of left shoulderIncomp lete tear of left rotator cuff Sep-0 2 6 Mynorvictor manuel Balder[address]. [address] , [place], [place], [address]. tel:[phone] [facility], [address] [address], [place], [address], [place] tel:[phone] [facility] Pain in left shoulder Apr-3 6 No Information Referring Provider: Andrey Lowe, [address], [place], [address] . tel:[phone] OFFICE/OUTPA TIENT VISIT NEW [facility], [address] [address], [place], [address], [place] tel:[phone] [facility] Incomplete tear of left rotator cuff 6 Mynor Balderas. [address] [facility], [place], [place], [address]. tel:[phone] Referring Provider: Pablo Sotelo, [address] [facility], [place], [address] . tel:[phone] Family History Family Member Type Diagnosis Age At Onset Mother Problem Hypertension Father Problem Diabetes mellitus Payers Payer name Insurance type Covered democrat ID Tj arriaza(s) Essence PPO [id number] [id number] Social History Type Description Quantity Date Captured Comments Alcohol Use Details Unknown Caffeine Use Details Unknown Tobacco Use Status Never smoked tobacco 2023 Smoking Status Never smoker Non-Smoking Tobacco Use Details : No Details Available : No Details Available Sex Female Chief Complaint And Reason For Visit No Information Reason For Referral Reason For Referral No Information Plan Of Treatment Date Type Action Status Referral Ordered: MRI JT Lower w/o Contrast RT knee Appointment date/timeframe: 04/14/2023 ordered Referral Ordered: RADEX KNE COMPL 4/MORE VIEWS RT knee ordered Referral Ordered: RADEX KNE 3 VIEWS RT ordered Referral Ordered: MRI ANY JT LXTR C-MATRL RT knee Appointment date/timeframe: 07/29/2016 ordered Referral Ordered: MRI ANY JT UXTR C-MATRL LT shoulder Appointment date/timeframe: 05/14/2016 ordered Patient Education Knee: Exercises complet ed History Of Present Illness Encounter Date Complaint History Of Prese nt Illness No Information Functional Status Date Functional Assessmen t No Information Instructions Date Instruction Additional Infor brad Fall prevention home exercise program handout provided Discussed treatment options Rela tommy to Internal derangement of right knee Assessments Type Assessment Date assessment S/P right knee arthroscopy Patient Care Teams Name Effective Dates (start - stop) Status Members No Information
--- OUTSIDE RECORDS SUMMARY | 2024-12-02 13:54 | XMS_ITS | Continuity of Care Document ---
Author Organization [facility] Address [address] [place] [address] Phone Care Team Providers Care Sustainability Manager Name Role Phone Sebastian Clifford Unavailable Unavailab le Allergies, Adverse Reactions, Alerts Substance Reaction Status Criticality No Known Drug Allergies Other Active No I nformation Medications Medication Instructions Dosage Effective Dates (start - stop) Status Comments Voltaren-XR 100 mg tablet,extended release take 1 tablet by oral route every day as needed 100 MG - Active Soma 350 mg tablet take 1 tablet by ora l route 3 times every day at bedtime as needed - Active Beaumont 5 mg-325 mg tablet take 1 by Oral route every 4 hours as needed for pain 1 - Active Advance Directives Directive Yes / No Effective Date File Name No Information Encounters Encounter Description Practice Location Reason(s) For Visit Diagnoses Date Provider Providers Copied on Encounter [facility], [address], [place], [place], [address], [place] tel:[phone] Sujey KELLY No Information 8 Monika Cortes. [address], [address], [place], [place], [address], [place]. tel:[phone] [facility], [address], [place], [place], [address], tel:[phone] Sujey KELLY Chronic left shoulder pain 6 Daphnie Shah. [address], [address], [place], [place], [address], [place]. tel:[phone] [facility], [address], [place], [place], [address], tel:[phone] [facility] Chronic left shoulder pain 6 Daphnie Shah. [address], [address], [place], [place], [address], [place]. tel:[phone] Referring Provider: Pablo Sotelo, [address], [place], [address] . tel:[phone] [facility], [address], [place], [place], [address], tel:[phone] [facility] Chronic left shoulder pain 6 Daphnie Shah. [address], [address], [place], [place], [address], [place]. tel:[phone] Referring Provider: Pablo Sotelo, [address], [place], [address] . tel:[phone] [facility], [address], [place], [place], [address], tel:[phone] [facility] Low back painEncounter for screening for cardiovascular disordersHypoth yroidism, unspecified typeEncounter for other screening for malignant neoplasm of breast 5 Daphnie Shah. [address], [address], [place], [place], [address], [place]. tel:[phone] Referring Provider: Pablo Sotelo, [address], [place], [address] . tel:[phone] [facility], [address], [place], [place], [address], tel:[phone] [facility] Thoracic back sprainLumbar pain with radiation down right leg 4 Darrion Iraheta. [address], [address], [place], [place], [address], [place]. tel:[phone] Referring Provider: Pablo Sotelo, [address], [place], [address] . tel:[phone] [facility], [address], [place], [place], [address], tel:[phone] [facility] Lateral epicondylitis of right elbowLumbago Donnie- 4201 3 Daphnie Shah. [address], [address], [place], [place], [address], [place]. tel:[phone] Referring Provider: Pablo Sotelo, [address], [place], [address] . tel:[phone] [facility], [address] [facility], [place], [place], [address], tel:[phone] [facility] Hemangioma Apr- 8201 2 Daphnie Shah. [address], [address], [place], [place], [address], [place]. tel:[phone] Referring Provider: Pablo Sotelo, [address], [place], [address] . tel:[phone] [facility] [address] [facility], [place], [place], [address], [place] tel:[phone] [facility] SCIATICA May-0 6-201 0 Cece Cabezas. [address], [place], [place], [address], [place]. tel:[phone] [facility], [address], [place], [address], [place] tel:[phone] [facility] JOINT PAIN-SHLDER Apr-0 1-201 0 Daphnie Shah. [address], [address], [place], [place], [address], [place]. tel:[phone] [facility], [address], [place], [place], [address], [place] tel:[phone] [facility] SCREEN - OSTEOPOROSIS Mar- 7-200 9 Daphnie Shah. [address], [address], [place], [place], [address], [place]. tel:[phone] [facility], [address], [place], [place], [address], [place] tel:[phone] [facility] SCREEN-IRON DEFIC ANEMIAROUTINE MEDICAL EXAMSCREEN FOR NEPHROPATHYSCRE EN-CARDIOVASC NEC 9 Daphnie Shah. [address], [address], [place], [place], [address], [place]. tel:[phone] [facility], [address], [place], [place], [address], [place] tel:[phone] [facility] SCREEN-THYROID DISORDER 9 Daphnie Shah. [address], [address], [place], [place], [address], [place]. tel:[phone] [facility], [address], [place], [place], [address], [place] tel:[phone] [facility] GENERAL OSTEOARTHROSIS 9 Gillian Lange. [address], [address], [place], [place], [address], [place]. tel:[phone] [facility], [address], [place], [place], [address], [place] tel:[phone] [facility] INFLAMM POLYARTHROP NOSESOPHAGEAL REFLUX Dec- 9 Daphnie Shah. [address], [address], [place], [place], [address], [place]. tel:[phone] [facility], [address], [place], [place], [address], [place] tel:[phone] [facility] No Information 9 Jus Khan. [address], [place], [place], [address], [place]. tel:[phone] [facility], [address], [place], [place], [address], [place] tel:[phone] [facility] ACUTE URI NOS 8 Daphnie Shah. [address], [address], [place], [place], [address], [place]. tel:[phone] [facility], [address], [place], [place], [address], [place] tel:[phone] [facility] DERMATITIS NOS 200 7 Fedak Pablo. [address], [address], [place], [place], [address], [place]. tel:[phone] [facility], [address], [place], [place], [address], [place] tel:[phone] [facility] HAIR DISEASES NEC 7 Fedak Pablo. [address], [address], [place], [place], [address], [place]. tel:[phone] [facility], [address], [place], [place], [address], [place] tel:[phone] [facility] LUMBAGO 200 7 Conversion Doctor. [address] [place] [address], [place], [address], [place]. [facility], [address], [place], [place], [address], [place] tel:[phone] [facility] JOINT PAIN-PELVIS Feb-200 7 Fedak Pablo. [address], [address], [place], [place], [address], [place]. tel:[phone] [facility], [address], [place], [place], [address], [place] tel:[phone] [facility] PAIN IN LIMB Nov-0 7 Fededson Shah. [address], [address], [place], [place], [address], [place]. tel:[phone] [facility], [address], [place], [place], [address], [place] tel:[phone] [facility] DERMATITIS DUE TO PLANTLATERAL EPICONDYLITIS 200 2 Daphnie Shah. [address], [address], [place], [place], [address], [place]. tel:[phone] [facility], [address], [place], [place], [address], tel:[phone] [facility] GYNECOLOGIC EXAMINATION 0-200 1 Daphnie Shah. [address], [place], [place], [address], . tel:[phone] [facility], [address], [place], [place], [address], tel:[phone] [facility] VIRAL INFECTION NOS 6-199 9 Daphnie Shah. [address], [place], [place], [address], [place]. tel:[phone] Family History Family Member Type Diagnosis Age At Onset Father Problem (finding) diabetes melli tus in first degree relative Mother Problem (finding) dementia Father Problem (finding) osteoarthritis Mother Problem (finding) malignant neop lasm of breast in first degree relative Immunizations Vaccine Date Status Comments influenza, injectable, quadr ivalent, (3 years or older) administered Source: Public Agenc y Payers Payer name Insurance type Covered libertarian ID Authoriza tion(s) [facility] CI [id number] Social History Type Description Quantity Date Captured Comments Alcohol Use Details Unknown Caffeine Use Details Unknown Tobacco Use Status Smoking Status No Information Sex Female Chief Complaint And Reason For Visit No Information Reason For Referral Reason For Referral No Information History Of Present Illness Encounter Date Complaint History Of Prese nt Illness No Information Functional Status Date Functional Assessmen t No Information Medications Administered Medication Instructions Dosage Effective Dates (start - stop) Status Comments No Drug Therapy Prescribed Instructions Date Instruction Additional Infor mation No Information Assessments Type Assessment Date No Information Patient Care Teams Name Effective Dates (start - stop) Status Members No Information
[2024-12-02 15:03] LABS: Basophils Percent Auto 0.9 % (0.2-1.2); Eosinophils Absolute Auto 0.2 K/mm3 (0-0.3); Eosinophils Percent Auto 3.4 % (0-4.4); Hematocrit 37.1 % (37.0-47.0); Hemoglobin 12.4 g/dL (12.0-15.0); Immature Granulocyte Absolute 0.01 K/mm3 (0.00-0.031); Immature Granulocyte Percent A 0.2 % (0-0.5); Lymphocytes Absolute Auto 1.27 K/mm3 (0.9-3.2); Lymphocytes Percent Auto 28.5 % (18.3-44.2); Mean Corpuscular HGB Conc 33.4 g/dl (32-36); Mean Corpuscular Hemoglobin 30.1 pg (26-34); Mean Platelet Volume 9.9 fl (7.4-10.4); Monocytes Absolute Auto 0.4 K/mm3 (0.1-0.6); Monocytes Percent Auto 9.6 % (2.6-8.5); Neutrophils Absolute Auto 2.6 K/mm3 (1.3-6.7); Neutrophils Percent Auto 57.4 % (45.5-73.1); Platelet Count Result 246 k/mm3 (150-375); Red Blood Count 4.12 M/mm3 (4.2-5.4); Red Cell Distribution Width 14.6 % (11.5-14.5); White Blood Count 4.5 K/mm3 (4.5-10.0)
[2024-12-02 15:19] LABS: Albumin Level 4.3 g/dL (3.5-5.1); Estimated Glomerular Filt Rate > 60; Glucose 83 mg/dL (65-110)
[2024-12-02 15:22] LABS: Urine Cotinine NEGATIVE
[2024-12-02 15:51] LABS: Hemoglobin A1C 5.4 % (<5.7)
[2024-12-02 16:17] LABS: MRSA (PCR) NOT DETECTED (NOT DETECTE)
== END 2024-12-02 13:27 | disposition home or self-care (01) ==
LOC: ANHSURGERY 13:30
PROVIDERS: PCP Emergency Medicine; Visit Provider Orthopaedic Surgery
DX: M17.11 Unilateral primary osteoarthritis, right knee (principal); Z01.812 Encounter for preprocedural laboratory examination
CPT/HCPCS: 80307; 82040; 82565; 82947; 83036; 85025; 87641

== ENCOUNTER 2024-12-26 00:21 | Day surgery (SDC) | payer OTHER, SELFPAY ==
--- NOTE | 2024-12-02 13:35 | PC.NURSE ---
Report to the Outpatient Waiting Room, entrance under the green pavilion located off [facility], at time _10 AM on date _12/26/24 . Planned Procedure Time: _1200 P82Z .? Time changes happen often and if your time is changed the preop area will call you the afternoon before. - You and your visitor will be asked to self-screen and do not enter if you have any COVID symptoms. Please call surgeon if you need to reschedule. - A mask is optional within the hospital at this time. Patients may have clear liquids (water, carbonated beverages, clear teas, apple juice) until 3 hours prior to surgery ( 9AM) with a maximum of 20 ounces. - No food from midnight until time of surgery and no smoking, or chewing tobacco (or any form of nicotine). No chewing gum, candy or mints. - Take only the following medications with a SIP of water on the morning of surgery: __ALPRAZOLAM IF NEEDED DO NOT STOP ANY OF YOUR OTHER PRESCRIPTION MEDICATIONS PRIOR TO SURGERY EXCEPT THE FOLLOWING Hold all vitamins and supplements for 3 days per anesthesiologist.LAST DOSE12/22/24 Medications to discontinue per physician ALEVE HOLD 7 DAYS PRE OP PER DR COOL LAST DOSE _12/18/24 MAY TAKE TYLENOL IF NEEDED FOR PAIN Please no make-up, nail costa rican, hairspray, perfume, deodorant, or body powder the day of surgery.? No jewelry (including any body piercings) or valuables the day of surgery, leave them at home.? Please take a shower or bath the night before, or the morning of, surgery with an antibacterial soap.? Wear comfortable, loose fitting clothing.? Children are encouraged to wear pajamas. - Jewelry must be removed prior to entering the operating room.? Rings and piercings that are not removed may be cut off. - The hospital will not accept responsibility for valuables.? - Please leave all valuables, including medications, at home the day of surgery. If you are going home after surgery, a licensed yard truck driver must drive you home.? - NO public transportation without another adult if you receive anesthesia. - We recommend that an adult stay with you for 24 hours following discharge. - We also recommend that you do not drive, make important decision, drink alcoholic beverages, or take any drugs that were not prescribed by your health care provider for at least 24 hours after your discharge time. Follow any additional instructions given to you from your surgeon. VERBAL AND WRITTEN instructions given to __PATIENT_AND SPOUSE and asked if any additional questions and then verbalized understanding. Patient advised to call surgeon office or pre surgery nurse liaison [phone] if any additional questions.
[2024-12-02 14:25] VITALS: BP 103/63; PULSE 64; RESP 18; TEMP 36.6; O2SAT 98; BMI 25.0
[2024-12-26] VITALS (14 sets, daily range): BP systolic 105–135; BP diastolic 53–74; PULSE 63–79; RESP 12–20; TEMP 35.7–36.7; O2SAT 94–100
--- NOTE | ~2024-12-26 | XR_ITS ---
EXAMINATION: [id number] DATE: 12/26/2024 14:37 INDICATION: Postoperative evaluation following right total knee arthroplasty. TECHNIQUE: Anteroposterior and lateral views of the right knee were obtained. COMPARISON: None. FINDINGS: Right total knee arthroplasty with patellar resurfacing appears well seated and in near anatomic alig nment. No fractures identified. Expected postoperative subcutaneous and intra-articular gas. IMPRESSION: 1. Right total knee arthroplasty, negative for postoperative purposes. Reviewed, dictated and finalized at location A.
--- OUTSIDE RECORDS SUMMARY | 2024-12-26 00:24 | XMS_ITS | Continuity of Care Document ---
Author Organization [facility] Address [address] [facility] [address] [place] [address] Phone Care Team Providers Care Supervisor Ski Production Name Role Phone Lalita Joseph MD Unavailable [...] OFFICE/OUTPA TIENT VISIT EST [facility], [address], [facility], tel:[phone] [facility] S/P right knee arthroscopy 4 L'Hommedieu [place]. [address] [place], [place], [address]. tel:[phone] Referring Provider: Pablo Sotelo, [address] [place] [address], [address] . tel:[phone] OFFICE/OUTPA TIENT VISIT EST [facility], [address], [facility], tel:[phone] [facility] S/P right knee arthroscopyCho ndromalacia, right kneeInternal derangement of right knee 4 L'Hommedieu [place]. [address] [place], [place], [address]. tel:[phone] Referring Provider: Pablo Sotelo, [address] [place] [address], [address] . tel:[phone] [facility], [address], [address], tel:[phone] [facility] S/P right knee arthroscopyRig ht knee pain, unspecified chronicity 3 L'Hommedieu [place]. [address] [place], [place], [address]. tel:[phone] OFFICE/OUTPA TIENT VISIT EST [facility], [address], [address], [place] tel:[phone] [facility] Chondromalacia , right kneeS/P right knee arthroscopy 3 Susiemalgorzata Umana. [address] [facility] #[facility], [place], [address]. tel:[phone] Referring Provider: Pablo Sotelo, [address] [place] [address], [address] . tel:[phone] [facility], [address], [address], [place] tel:[phone] [facility] S/P right knee arthroscopy 3 Susiemalgorzata Lyndsay. [address] [facility] #[facility], [place], [address]. tel:[phone] Referring Provider: Pablo Sotelo, [address] [place] [address], [address] . tel:[phone] [facility], [address], [address], [place] tel:[phone] [facility] Complex tear of lateral meniscus, current injury, right knee, initial encounterOther tear of medial meniscus, current injury, right knee, initial encounter 3 L'Hommedieu [place]. [address] [place], [place], [address]. tel:[phone] [facility], [address], [address], [place] tel:[phone] [facility] Tear of lateral meniscus of right knee, current, unspecified tear type, initial encounterTear of medial meniscus of right knee, current, unspecified tear type, initial encounterChond romalacia, right knee 3 L'Hommedieu [place]. [address] [place], [place], [address]. tel:[phone] OFFICE/OUTPA TIENT VISIT EST [facility], [address], [address], [place] tel:[phone] [facility] Tear of medial meniscus of right knee, current, unspecified tear type, initial encounterTear of lateral meniscus of right knee, current, unspecified tear type, initial encounterChond romalacia, right knee 3 L'Hommedieu [place]. [address] [place], [place], [address]. tel:[phone] Referring Provider: Pablo Sotelo, [address] [place] [address], [address] . tel:[phone] [facility], [address], [address], [place] tel:[phone] [facility] Internal derangement of right knee 3 L'Hommedieu [place]. [address] [place], [place], [address]. tel:[phone] OFFICE/OUTPA TIENT VISIT NEW [facility], [address], [address], [place] tel:[phone] [facility] Chronic pain of right kneeInternal derangement of right knee 3 L'Hommedieu [place]. [address] [place], [place], [address]. tel:[phone] Referring Provider: Pablo Sotelo, [address] [place] [address], [address] . tel:[phone] [facility], [address], [address], [place] tel:[phone] [facility] S/P right knee arthroscopyOth er meniscus derangements, other lateral meniscus, right knee Feb-2 0-201 7 Mynor Andrey. [address] [place], [place], [address]. tel:[phone] [facility], [address], [address], [place] tel:[phone] [facility] S/P right knee arthroscopyOth er meniscus derangements, other lateral meniscus, right knee 7 Mynor Andrey. [address] [place], [place], [address]. tel:[phone] Referring Provider: Pablo Sotelo, [address] [place] [address], [address] . tel:[phone] [facility], [address], [address], [place] tel:[phone] [facility] S/P right knee arthroscopy 6 Mynor Andrey. [address] [place], [place], [address]. tel:[phone] [facility], [address], [address], [place] tel:[phone] [facility] S/P right knee arthroscopy 6 Mynor Andrey. [address] [place], [place], [address]. tel:[phone] OFFICE/OUTPA TIENT VISIT EST [facility], [address], [address], [place] tel:[phone] [facility] Tear of medial meniscus of right knee, current, unspecified tear type, initial encounterOther meniscus derangements, posterior horn of medial meniscus, right kneeOther meniscus derangements, other lateral meniscus, right kneeChondromal acia of patella, right 6 Mynor Andrey. [address] [place], [place], [address]. tel:[phone] Referring Provider: Pablo Sotelo, [address] [place] [address], [address] . tel:[phone] [facility], [address], [address], [place] tel:[phone] [facility] No Information 6 No Information Referring Provider: Andrey Lowe, [address], [place], [address] . tel:[phone] OFFICE/OUTPA TIENT VISIT EST [facility], [address] [address] [facility] [address] [address], [place], [address], [place] tel:[phone] [facility] Right knee pain, unspecified chronicityInte rnal derangement of right kneeSubacromia l impingement of left shoulder Nov- 0- 6 Mynorvictor manuel Balderas. [address] , [place], [place], [address]. tel:[phone] OFFICE/OUTPA TIENT VISIT EST [facility], [address] [address], [place], [address], [place] tel:[phone] [facility] Subacromial impingement of left shoulder Sep-2 6 Mynorvictor manuel Balderas. [address] , [place], [place], [address]. tel:[phone] OFFICE/OUTPA TIENT VISIT EST [facility], [address] [address], [place], [address], [place] tel:[phone] [facility] Subacromial impingement of left shoulderIncomp lete tear of left rotator cuff Sep-0 2 6 Mynorvictor manuel Balderas. [address] , [place], [place], [address]. tel:[phone] [facility], [address] [address], [place], [address], [place] tel:[phone] [facility] Pain in left shoulder Apr-3 6 No Information Referring Provider: Andrey Lowe, [address], [place], [address] . tel:[phone] OFFICE/OUTPA TIENT VISIT NEW [facility], [address] [address], [place], [address], [place] tel:[phone] [facility] Incomplete tear of left rotator cuff 6 Mynor Balderas. [address] [facility], [place], [place], [address]. tel:[phone] Referring Provider: Pablo Sotelo, [address] [facility], [place], [address] . tel:[phone] Family History Family Member Type Diagnosis Age At Onset Mother Problem Hypertension Father Problem Diabetes mellitus Payers Payer name Insurance type Covered alliance party ID Tj arriaza(s) [employer] PPO [id number] Social History Type Description Quantity Date Captured [...]
--- OUTSIDE RECORDS SUMMARY | 2024-12-26 00:24 | XMS_ITS | Clinical Summary ---
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 Gender Identity Not on file Sexual Orientation Not on file Plan of Treatment Health Maintenance Due Date Last Done Comments DTAP/TDAP/TD VACCINES (1 - Tdap) 1970 COLORECTAL SCREENING 01/14/1996 Colorectal Cancer Screening 01/14/1996 FIT-DNA Q 3 years 01/14/1996 FIT/FOBT Q 1 year 01/14/1996 Flex Sig/CT Colonography Q 5 years 01/14/1996 PNEUMOCOCCAL VACCINE 50+ YEA RS (1 of 1 - PCV) 2001 ZOSTER VACCINE (1 of 2) 2001 OSTEOPOROSIS SCREENING 01/14/2016 BREAST CANCER SCREENING 12/13/2016 12/14/19 16, 09/09/2013, 09/08/2012, Additional history exists INFLUENZA VACCINE (#1) 2024 RSV VACCINE (60+ or ) (1 - 1-dose 75+ series) 2026 Care Teams Inner Diameter Grinder Tool Relationship Specialty [place] [address] [place] [address] PCP - General Internal Medicine 01/30/10
--- OUTSIDE RECORDS SUMMARY | 2024-12-26 00:24 | XMS_ITS | Clinical Summary ---
Author Organization [facility] [address] [facility] [address] Address [address] [place] [address] Care Team Providers Care Slurry Mixer Name Role Phone Pablo Flores MD Primary Care Provide r Allergies No known active allergies Medications ALPRAZolam (XANAX) 0.5 mg tablet Take 1 tablet (0.5 mg total) by mouth daily 4 Active menthol 4 % gel Apply topically Active Active Problems Problem Noted Date Diagnosed Date Chondromalacia 11/20/2023 Bilateral carotid artery stenosis 04/09/2023 Assessment & Plan (04/09/2023 3:30 PM CDT): Impression: Patient underwent a carotid duplex at an outside facility for further evaluation of syncope. Patient denies any symptoms suggestive of TIA. Plan: We will have patient undergo carotid duplex in 2 weeks and we will call patient with results. Instructed patient if there is any concerning results we will have patient follow-up in the office for further recommendations. -we will also have patient follow-up in 6 months for re-evaluation with carotid duplex. Chondromalacia of patella, right 04/06/2023 Incomplete tear of left rotator cuff 04/06/2023 Internal derangement of right knee 04/06/2023 Right knee pain 04/06/2023 S/P right knee arthroscopy 04/06/2023 Subacromial impingement of left shoulder 023 Tear of medial meniscus of right knee, current 0 04/06/2023 Varicose veins of lower extr emities with complications, bilateral 04/26/2019 Pain in left shoulder 05/14/2016 Immunizations Immunization Administration Dates Next Due Influenza, Quadrivalent, Hig h Dose, Preservative Free, Intrr 06/13/2022 Influenza, Trivalent, IM (MDV) 09/02/2021 Surgical History Surgery Date Site/Laterality Comments GALLBLADDER SURGERY 09/14/1993 - 09/13/1994 CATARACT EXTRACTION 09/14/2021 - 09/13/2022 Bilateral PLANTAR FASCIECTOMY Right Medical History Medical History Date Comments Hx Other Medical Back Pain Family History Medical History Relation Name Comments Diabetes Father Hypertension Mother Relation Name Status Comments Father Mother Social History Tobacco Use Types Packs/Day Years Used Date Smoking Tobacco: Never Smokeless Tobacco: Never Tobacco Cessation:Counseling Given: Not Answered AUDIT-C Answer Date Recorded Q1: How often do you have a drink containing alc ohol? 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 Gender Identity Not on file Sexual Orientation Not on file Obstetrics History Last Filed Vital Signs Vital Sign Reading Time Taken Comments Blood Pressure 125/78 06/02/2024 8:05 AM CDT Pulse 73 06/02/2024 8:05 AM CDT Temperature - - Respiratory Rate - - Oxygen Saturation - - Inhaled Oxygen Concentration - - Weight 67.4 kg (148 lb 9.6 oz) 06/02/2024 8:05 A M CDT Height 168.9 cm (5' 6.5 ) 06/02/2024 8:05 AM CDT Body Mass Index 23.63 06/02/2024 8:05 AM CDT Plan of Treatment Health Maintenance Due Date Last Done Comments Breast Cancer Screening-Mammogram 1951 Colon Cancer Screening-Colonoscopy 1950 Depression Screening 1951 Fall Risk Assessment 1951 Hepatitis C Screening 1951 Osteoporosis Screening-Bone Density Scan 1951 DTaP/Tdap/Td Vaccine (1 - Tdap) 1962 Hepatitis B Screening 1969 Pneumococcal vaccine 65+ (1 of 1 - PCV) 2001 Zoster Vaccine (1 of 2) 2001 Well Visit 65+ 01/14/2016 Covid-19 Vaccine (2 - season) 2024 Influenza Vaccine (#1) 2024 06/13/2022, [address] [facility] ADVANTAGE CHOICE PPO [facility] ADVANTAGE CHOICE PPO Care Teams Slurry Mixer Relationship Specialty Start Date End Date Pablo Flores MD [address] [place] [address] PCP - General Emergency Medicine 04/26/19
--- OUTSIDE RECORDS SUMMARY | 2024-12-26 00:24 | XMS_ITS | Continuity of Care Document ---
Author Organization [facility] Address [address] [place] [address] Phone Care Team Providers Care Bank Clerk Name Role Phone Sebastian Clifford Unavailable Unavailab [...] day at bedtime as needed - Active [place] 5 mg-325 mg tablet take 1 by Oral route every 4 hours as needed for pain 1 - Active Advance Directives Directive Yes / No Effective Date File Name No Information Encounters Encounter Description Practice Location Reason(s) For Visit Diagnoses Date Provider Providers Copied on Encounter [facility], [address], [place], [place], [address], [place] tel:[phone] Sujey KELLY No Information 8 Monika Cortes. [address], [place], [place], [address], [place]. tel:[phone] [facility], [address], [place], [place], [address], tel:[phone] Sujey KELLY Chronic left shoulder pain 6 Daphnie Shah. [address], [place], [place], [address], [place]. tel:[phone] [facility], [address], [place], [place], [address], tel:[phone] [facility] Chronic left shoulder pain 6 Daphnie Shah. [address], [place], [place], [address], [place]. tel:[phone] Referring Provider: Pablo Sotelo, [address], [place], [address] . tel:[phone] [facility], [address], [place], [place], [address], tel:[phone] [facility] Chronic left shoulder pain 6 Daphnie Shah. [address], [place], [place], [address], [place]. tel:[phone] Referring Provider: Pablo Sotelo, [address], [place], [address] . tel:[phone] [facility], [address], [place], [place], [address], tel:[phone] [facility] Low back painEncounter for screening for cardiovascular disordersHypoth yroidism, unspecified typeEncounter for other screening for malignant neoplasm of breast 5 Daphnie Shah. [address], [place], [place], [address], [place]. tel:[phone] Referring Provider: Pablo Sotelo, [address], [place], [address] . tel:[phone] [facility], [address], [place], [place], [address], tel:[phone] [facility] Thoracic back sprainLumbar pain with radiation down right leg 4 Darrion Iraheta. [address], [address], [place], [place], [address], [place]. tel:[phone] Referring Provider: Pablo Sotelo, [address], [place], [address] . tel:[phone] [facility], [address], [place], [place], [address], tel:[phone] [facility] Lateral epicondylitis of right elbowLumbago Donnie- 4201 3 Daphnie Shah. [address], [address], [place], [place], [address], [place]. tel:[phone] Referring Provider: Pablo Sotelo, [address], [place], [address] . tel:[phone] [facility], [address] [facility], [place], [place], [address], tel:[phone] [facility] Hemangioma Apr- 8201 2 Daphnie Shah. [address], [address], [place], [place], [address], [place]. tel:[phone] Referring Provider: Pablo Sotelo, [address], [place], [address] . tel:[phone] [facility] [address] [facility], [place], [place], [address], [place] tel:[phone] [facility] SCIATICA May-0 6-201 0 Cece Cabezas. [address], [place], [place], [address], [place]. tel:[phone] [facility], [address], [place], [address], [place] tel:[phone] [facility] JOINT PAIN-SHLDER Apr-0 1-201 0 Daphnie Shah. [address], [address], [place], [place], [address], [place]. tel:[phone] [facility], [address], [place], [address], [place] tel:[phone] [facility] SCREEN - OSTEOPOROSIS Mar- 7-200 9 Daph[address] Shah. [address], [address], [place], [place], [address], [place]. tel:[phone] [facility], [address], [place], [address], [place] tel:[phone] [facility] SCREEN-IRON DEFIC ANEMIAROUTINE MEDICAL EXAMSCREEN FOR NEPHROPATHYSCRE EN-CARDIOVASC NEC 9 Daphnie Shah. [address], [address], [place], [place], [address], [place]. tel:[phone] [facility], [address], [place], [address], [place] tel:[phone] [facility] SCREEN-THYROID DISORDER 9 Daphnie Shah. [address], [address], [place], [address], [place]. tel:[phone] [facility], [address], [place], [place], [address], [place] tel:[phone] [facility] GENERAL OSTEOARTHROSIS 9 Gillian Lange. [address], [address], [place], [place], [address], [place]. tel:[phone] [facility], [address], [place], [address], [place] tel:[phone] [facility] INFLAMM POLYARTHROP NOSESOPHAGEAL REFLUX Dec- 9 Daphnie Shah. [address], [address], [place], [place], [address], [place]. tel:[phone] [facility], [address], [place], [address], [place] tel:[phone] [facility] No Information 9 Jus Khan. [address], [place], [place], [address], [place]. tel:[phone] [facility], [address], [place], [address], [place] tel:[phone] [facility] ACUTE URI NOS 8 Daphnie Shah. [address], [place], [place], [address], [place]. tel:[phone] [facility], [address], [place], [place], [address], [place] tel:[phone] [facility] DERMATITIS NOS 200 7 Fedak Pablo. [address], [place], [place], [address], [place]. tel:[phone] [facility], [address], [place], [place], [address], [place] tel:[phone] [facility] HAIR DISEASES NEC 7 Fedak Pablo. [address], [address], [place], [place], [address], [place]. tel:[phone] [facility], [address], [place], [address], [place] tel:[phone] [facility] LUMBAGO 200 7 Conversion Doctor. [address] [place] [address], [place], [address], [place]. [facility], [address], [place], [place], [address], [place] tel:[phone] [facility] JOINT PAIN-PELVIS Feb-200 7 Fedak Pablo. [address], [address], [place], [place], [address], [place]. tel:[phone] [facility], [address], [place], [address], [place] tel:[phone] [facility] PAIN IN LIMB Nov-0 7 Fededson Shah. [address], [address], [place], [place], [address], [place]. tel:[phone] [facility], [address], [place], [place], [address], [place] tel:[phone] [facility] DERMATITIS DUE TO PLANTLATERAL EPICONDYLITIS 200 2 [address]aphnie [address]. [address], [address], [place], [place], [address], [place]. tel:[phone] [facility], [address], [place], [place], [address], tel:[phone] [facility] GYNECOLOGIC EXAMINATION 0-200 1 Daphnie Shah. [address], [address], [place], [place], [address], . tel:[phone] [facility], [address], [place], [place], [address], tel:[phone] [facility] VIRAL INFECTION NOS 6-199 9 Daphnie Shah. [address], [place], [place], [address], [place]. tel:[phone] Family History Family Member Type Diagnosis Age At Onset Father Problem (finding) diabetes melli tus in first degree relative Mother Problem (finding) dementia Father Problem (finding) osteoarthritis Mother Problem (finding) malignant neop lasm of breast in first degree relative Immunizations Vaccine Date Status Comments influenza, injectable, quadr ivalent, (3 years or older) administered Source: Public Agenc y Payers Payer name Insurance type Covered republican ID Authoriza tion(s) [facility] CI [id number] Social History Type Description Quantity Date Captured [...]
--- OUTSIDE RECORDS SUMMARY | 2024-12-26 00:24 | XMS_ITS | Referral Summary ---
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
[2024-12-26] MEDS: ACETAMINOPHEN 500 MG TABLET 1000 MG PO (10:15)
[2024-12-26] MEDS: TRANEXAMIC ACID 1,000MG/ISO100 1,000 MG/100 ML BAG 200 MG IVPB (10:20)
[2024-12-26] MEDS: LACTATED RINGERS 1,000 ML 30 ML IV CONT ×2 (10:20→14:22)
--- NOTE | 2024-12-26 10:56 | P.PNAN_ITS ---
Anes - Initial Pre Proc Eval Procedure: Operation Date: 12/26/24 12:00 Proposed Procedures p Right Total Knee Arthroplasty - Santo Groves MD Date/Time: 12/26/24 10:56 Surgeon: Santo Groves MD Pre Op Diagnosis: primary OA right knee Patient Data Age: 74 Gender: F Height: 1.68 m Weight: 65 kg Last Vital Signs Temp 36.4 C 12/26/24 10:00 Pulse 71 12/26/24 10:00 Resp 16 12/26/24 10:00 BP 108/64 12/26/24 10:00 Pulse Ox 100 12/26/24 10:00 O2 Del Method Room Air 12/26/24 10:00 Allergies Allergy/AdvReac Type Severity Reaction Status Date / Time No Known Allergies Allergy Verified 12/26/24 10:03 Home Medications ?Medication ?Instructions ?Recorded ?Confirmed ?Type ascorbic acid 7.5 mg-vit E 7.5 1 tablet PO DAILY 02/24/22 12/26/24 History unit-biotin 1,250 mcg chewable tablet (Hair,Skin,Nails with Biotin) geriatric iron-vit B complex oral 1 ea PO DAILY 02/24/22 12/26/24 History liquid zinc 50 mg tablet 50 mg PO DAILY 02/24/22 12/26/24 History pyridoxine (vitamin B6) 50 mg 50 mg PO DAILY 09/30/22 12/26/24 History tablet magnesium oxide 500 mg capsule 500 mg PO DAILY 03/04/23 12/26/24 History cholecalciferol (vitamin D3) 50 100 mcg (2 x 50 mcg (2,000 unit)) 09/25/23 12/26/24 Rx mcg (2,000 unit) capsule PO DAILY #180 caps alprazolam 0.5 mg tablet (Xanax) 0.5 mg PO DAILY #30 tabs 09/20/24 12/02/24 Rx naproxen sodium 220 mg tablet 440 mg PO PRN PAIN 12/02/24 12/26/24 History (Aleve) omega 9-ayt-bmy-fish oil 1,000 mg 1 cap PO DAILY 12/02/24 12/26/24 History (120 mg-180 mg) capsule (Fish Oil) Laboratory Tests 12/26/24 10:14 Blood Type Pending Antibody Screen Pending Patient hx anesthesia problems: none Family hx anesthesia problems: none Results Review: All pre-operative results and documents have been reviewed as part of the pre- operative evaluation. [facility] Past Medical History Medical History Sinus congestion Skin lesion Sinusitis Fatigue Vitamin D deficiency Varicose veins of bilateral lower extremities with pain Hair loss Chronic low back pain with left-sided sciatica Anxiety Joint instability Hx of tear of meniscus of knee joint (~08/14/16) Right knee injury Post menopausal problems Other screening mammogram Family History Family History Father Diabetes mellitus, Onset Age: 78 Social History Social History Smoking status: Never smoker Additional smoking assessment comments: DENIES ANY FORM OF TOBACCO USE Alcohol intake: never Substance use: never Do You Feel Safe in your Home?: Yes Lack of Transportation: No Lack of Food: Never True Current Housing: I Have Housing Concerned About Future Housing: No Difficulty Paying Gas/Electric Bills: No Difficulty Paying for Meds: No Currently Unemployed: No Education: Associate Degree Difficulty w/ Childcare or Family Care: No Living arrangements: with family Spiritual care concerns: No Anes - Eval Final PreProcedure Day of Procedure 12/26/24 10:56 Patient weight: normal Heart: regular rate and rhythm Lungs: clear to auscultation Airway: Mallampati scale class II Neurological: alert and oriented Last oral intake: >/= 8 hours ASA classification: II Emergent: no Anesthetic plan: proceed Anesthesia type and monitoring: general LMA and standard monitoring Results Review: All pre-operative results and documents have been reviewed as part of the pre- operative evaluation. Informed Consent: The patient's anesthetic plan and its attendant risks and benefits were discussed with the patient/family/POA. Questions were solicited and answers provided to the satisfaction of the patient/family/POA.
--- NOTE | 2024-12-26 11:46 | WPDHPUPDATE1 ---
History and Physical Update Update Date/Time: 12/26/24 11:46 History and Physical has been reviewed, including an updated exam of the patient. There are NO changes in the patient's condition. Risks, benefits, and alternatives have been discussed and questions answered. Patient agrees to proceed with procedure.
[2024-12-26] MEDS: ceFAZolin 2 GM/D5W 50 ML 2 GM/50 ML BAG IVPB ×2 (12:14→20:12)
[2024-12-26] MEDS: SODIUM CHLORIDE 0.9% IV 37.7 ML, MORPHINE SULFATE INJ (*CRX) 2 MG, ROPivacaine HCL 1% 2... INFILTRATE (13:52)
[2024-12-26] MEDS: TRANEXAMIC ACID 1,000 MG/10 ML AMPUL 1000 MG IV PUSH (13:53)
[2024-12-26] MEDS: fentaNYL CITRATE INJ (*CRX) 100 MCG/2 ML VIAL 25 MCG IV PUSH ×3 (14:30→14:47)
--- NOTE | 2024-12-26 15:44 | W.PM.PROC2 ---
Procedure Note - Detailed Date of Procedure 12/26/24 Pre-op Diagnosis Right knee degenerative arthritis. Post-op Diagnosis Same Procedure Performed Calipered, kinematically aligned total knee replacement right knee. Surgeon Santo Groves MD Certified Medical Transcriptionist Marimar Torres PA-C Anesthesia General Findings According to the calipered kinematic alignment principles, the knee was balanced by the following verification checks incorporating 6 caliper measurements, using an insert goniometer to select the insert thickness, and adjusting the tibial resection following the kinematic alignment algorithm (see figure 160.10 published in [employer] chapter on kinematic alignment total knee arthroplasty.) The steps verified the femoral and tibial components were kinematically aligned coincident to the patient's pre arthritic joint lines, which closely restored the pitka's point tibial compartment forces and ligament laxities without ligament release. The [employer] knee, designed specifically for kinematic alignment, fit optimally. There was some scarring from previous arthroscopic lateral meniscectomy. Minimal release of capsule and ITB band anterolaterally was performed. The record of verification checks were documented and scanned into the chart. Distal Femoral Resection: Distal Medial 6 mm(cartilage worn), Distal Lateral 8 mm Target thickness of 8mm Unworn, 6mm Worn (No Cartilage). Posterior Femoral Resection: Posterior Medial 5 mm(cartilage worn), Posterior Lateral 7 mm. Target thickness of 7mm Unworn, 5mm Worn (No Cartilage). Description of Procedure General anesthesia was administered. A well-padded tourniquet was placed high on the thigh. The limb was prepped and draped in the usual sterile fashion. The limb was exsanguinated and the tourniquet inflated to 300 mmHg. A longitudinal incision was created over the midline of the knee. Sharp dissection was taken through subcutaneous tissues. Electrocautery was used for hemostasis. A subvastus approach to the knee joint was performed. The ACL, anterior horns of the menisci, and fat pad were excised, and a subperiosteal dissection was carried along the posterior medial border of the tibia. The thickness of the pitka[place] point patella was measured with a caliper. The patella was resected using the oscillating saw. The best fitting anatomic patella button was selected. The fixation holes were drilled. When the patella and patella buttons combined thickness was thicker than the pitka's point patella, the patella was recut. Starting midway between the top of the notch in the anterior femoral cortex, I drilled a 9 mm diameter hole parallel to the anterior cortex to minimize flexion of the femoral component and promote patella tracking. I verified the existence of a 5-10 mm bone bridge between the posterior aspect of the hole and the anterior limit of the intercondylar notch. An intraosseous positioning maria l was inserted 10 cm into the femur perpendicular to the distal joint line and parallel to the anterior cortex. I used a distal femoral referencing guide that compensated 2 mm when the cartilage was worn on the distal medial femoral condyle, and 2 mm when the cartilage was worn on the distal lateral femoral condyle. The basis for setting the distal and posterior femoral resection guide is knowing that the varus and valgus grade II to IV Kellegren-Josh osteoarthritic knees have negligible bone wear at 0? and 90? and that the mean full-thickness cartilage wear approximates 2 mm. I measured the thickness of distal femoral resections with a caliper to +/- 0.5 mm. The thickness of each resection was adjusted to match the thickness of the respective condyle of the femoral component within 0.5 mm of target after compensating for cartilage wear and kerf. When the distal resection was 1-2 mm too thin, a recut guide was used to adjust the cut. When the distal resection was too thick, a 1 or 2 mm thick washer was fixed to the back of the 4-in-1 chamfer block to karla a corrective gap between the femoral component and distal femur. I set posterior femoral referencing guide at 0? orientation to position the pin holes for the 4 in 1 chamfer block. The antwan wing measured the width of the distal femoral resection and selected the size of the 4 in 1 chamfer block and femoral component. The AP sizer confirmed the size. I measured the thickness of the posterior femoral resections with a caliper before making the anterior and chamfer cuts. I adjusted the thicknesses of each resection to match the thickness of the respective condyle of the femoral component within +/-0.5 mm after compensating for cartilage wear and curve. When a posterior resection femoral resection was 1-2 mm too thick or thin a corrective correction was made by shifting or rotating the 4 in 1 chamfer block as needed. The chamfer block was secured in the correct position with compression screws. The anterior and chamfer femoral resections were made. These caliper measurements and corrections verified that the femoral component was set coincident with the patient's pre-arthritic distal and posterior femoral joint lines. I removed all the medial and lateral femoral and tibial osteophytes to restore the pre arthritic length of the medial and lateral collateral ligaments. I darian AP lines along the major axis of the lateral tibial plateau in between the tibial spines which identified the flexion extension plane of the knee. A conventional extramedullary tibial resection guide was applied to the ankle. An antwan wing was placed medially in the saw slot. The varus valgus angle of the tibial resection guide was adjusted until the guide paralleled the proximal tibial articular surface after compensating for cartilage and bone wear. The slope of flexion extension angle of the tibial resection guide was adjusted until the antwan wing paralleled the slope of the medial tibia after compensating for wear. The AP axis of the tibial resection guide was adjusted parallel to the two lines. The proximal tibia was resected, partially releasing the insertion of the posterior cruciate ligament. The thickness of the medial and lateral lateral tibial condyle was measured at the base of the tibial spines. I visually verified the slope of the medial border of the resection was parallel to the patient's pre arthritic slope after compensating for cartilage and bone wear. I removed the remnants of the posterior horns of the menisci and posterior osteophytes and cauterized the inferior lateral genicular vessels. The Aquamantys bipolar device was also used to for additional hemostasis. When the knee had a preoperative flexion contracture of 20? or more I teased the capsule off the posterior femur with a curved 3 quarter-inch osteotome. I administered the posterior femoral periosteal injection by delivering 10 cc using a 20 gauge spinal needle at the most medial and 10 cc at the most lateral femoral spur surface which reduced the risk of injury to the posterior neurovascular structures. I followed 6 options in a decision tree to fine tune the varus valgus and posterior slope orientation of the tibial component to restore the patient's pre arthritic tibial joint line and limb alignment. First, I adjusted the varus-valgus orientation of the proximal tibia resection working in 1 degree to 2 degree increments until there was negligible medial and lateral lift off of the distal femoral and proximal tibial resection from the spacer block during a varus valgus laxity assessment in extension. I selected the largest anatomic shape trial tibial base plate that fit within the cortical boundary of the proximal tibial resection. The base plate was best fit parallel to the cortical boundary which set the Internal-external orientation of the anterior to posterior and medial to lateral positions. The best fit method set the AP axis of the tibial base plate and insert parallel to the flexion extension plane of the pre arthritic knee. I pinned the trial tibial base plate, prepared the cruciate slot, and fixed the base plate to the tibia with the cruciate stem. I inserted the trial femoral component. The knee was placed in full extension. Varus valgus laxity is of the knee with trial components were assessed. When asymmetric laxity was observed a 1-2 degree varus or valgus recut guide was used to fine tune the tibial resection until the laxity was 1 degree or less in full extension like the pitka's point knee. The following steps determined the optimal insert thickness within +/-1 mm. First I inserted an insert goniometer that matched the thickness of the spacer block. I reduced the patella and then with the knee in maximum extension, I verified the knee hyperextended a few degrees and had negligible varus valgus laxity, like the pre arthritic knee. Next, I measured the external tibial orientation which was the angle the insert goniometer intersected the sagittal line on the medial condyle of the femoral trial component. Then with the knee in 15-30 degrees flexion I verified a 3-4 mm gap in the lateral compartment and no gap in the medial compartment during a 2nd varus valgus laxity test. Next, I placed the knee in 90? of flexion and the foot resting on the operating table and measured the internal tibial orientation. I repeated the steps until I identified the insert thickness that provided the highest external tibia orientation in extension and the highest internal tibial orientation at 90? flexion without anterior lift-off of the insert from the tibial base plate. The insert with this thickness was implanted. I applied a posterior drawer test with the tibia distracted by gravity and verified no posterior subluxation of the tibia relative to the femur. The patella remained centered on the trochlea and tracked well throughout the entire arc of flexion and extension. I used pulse lavage to clean the bony surfaces of debris and dried bone. I cemented the tibial, femoral, and patellar components using 1 bag of methylmethacrylate with Gentamycin, then rechecked the stability at full extension, 15-30 degrees, and 90? flexion and verified religious of the entire arc of motion of the knee. The circulating nurse confirmed the sponge and needle counts were correct. I used pulse lavage to rinse the joint and wound. The extensor mechanism was closed with interrupted #1 Vicryl suture and #1 running Stratafix suture. The subcutaneous layer was closed with interrupted #1 Vicryl suture followed by 2-0 Stratafix and 3-0 Stratafix. Steri-Strips placed on the skin. Silver impregnated occlusive dressing applied to the wound. A light gauze wrap and Jluis bandage were placed. The patient was transferred to the recovery room in stable condition. There were no complications. Physician medical office assistant, Marimar Torres PA-C, required for surgery; including patient positioning, draping, tissue retraction, maintaining instrument position, wound closure, and dressing placement. Implants Medacta K spheriKA Femoral component SpheriKA size 4, tibial component size [id number], vitamin-E flex insert, thickness 10mm, Anatomic patella implant size 2. Estimated Blood Loss 20 Drains No Pathology None sent Complications No immediate complications Condition Stable Disposition PACU [facility] Billing Surgery - Charge Forward: Surgery Billing
[2024-12-26] MEDS: ACETAMINOPHEN 325 MG TABLET 650 MG PO (16:59)
[2024-12-26] MEDS: predniSONE 5 MG TABLET PO (17:00)
[2024-12-26] MEDS: SENNA/DOCUSATE SODIUM TABLET 2 TAB PO (17:00)
--- NOTE | 2024-12-26 17:36 | ADMGEN ---
This patient, Kelli Matt, was admitted to 3 Med Surg Room 329-01. Patient/family oriented to hospital policies and general routines including ID bracelet, bed and alarms, visiting hours, pain management, procedures, bathroom and other care routines, personal items, smoking policy, room service/diet, and visiting hours. Information on how to activate the Rapid Response Team has been discussed. Patient/Family are encouraged to report perceived risks to care and to ask questions if they do not understand what they are told or what they should do.
[2024-12-26] MEDS: ASPIRIN 81 MG ENTERIC TABLET PO (20:12)
[2024-12-26] MEDS: FAMOTIDINE 20 MG TABLET PO (20:12)
[2024-12-27 01:32] VITALS: BP 116/60; PULSE 53; RESP 14; TEMP 36.5; O2SAT 98
[2024-12-27] MEDS: ceFAZolin 2 GM/D5W 50 ML 2 GM/50 ML BAG IVPB (04:46)
[2024-12-27] MEDS: ACETAMINOPHEN 325 MG TABLET 650 MG PO (05:13)
[2024-12-27 05:32] VITALS: BP 103/60; PULSE 63; RESP 16; TEMP 36.6; O2SAT 95
[2024-12-27 06:19] LABS: Basophils Percent Auto 0.4 % (0.2-1.2); Eosinophils Percent Auto 0.2 % (0-4.4); Hematocrit 33.5 % (37.0-47.0); Hemoglobin 11.2 g/dL (12.0-15.0); Immature Granulocyte Absolute 0.06 K/mm3 (0.00-0.031); Immature Granulocyte Percent A 0.5 % (0-0.5); Lymphocytes Absolute Auto 1.22 K/mm3 (0.9-3.2); Lymphocytes Percent Auto 10.8 % (18.3-44.2); Mean Corpuscular HGB Conc 33.4 g/dl (32-36); Mean Corpuscular Hemoglobin 29.7 pg (26-34); Mean Corpuscular Volume 88.9 fl (80-100); Mean Platelet Volume 9.9 fl (7.4-10.4); Monocytes Absolute Auto 0.8 K/mm3 (0.1-0.6); Monocytes Percent Auto 7.3 % (2.6-8.5); Neutrophils Absolute Auto 9.1 K/mm3 (1.3-6.7); Neutrophils Percent Auto 80.8 % (45.5-73.1); Platelet Count Result 242 k/mm3 (150-375); Red Blood Count 3.77 M/mm3 (4.2-5.4); White Blood Count 11.3 K/mm3 (4.5-10.0)
[2024-12-27 06:28] LABS: Anion Gap 7 mmol/L (4-12); Blood Urea Nitrogen 10 mg/dL (7-17); Calcium 8.6 mg/dL (8.4-10.2); Carbon Dioxide 28 mmol/L (22-30); Chloride 101 mmol/L (98-107); Estimated CRCL calculation 59 ml/min; Estimated Glomerular Filt Rate > 60; Glucose 134 mg/dL (65-110); Potassium 3.5 mmol/L (3.4-5.0); Sodium 136 mmol/L (137-145)
[2024-12-27] MEDS: SENNA/DOCUSATE SODIUM TABLET 2 TAB PO (07:36)
[2024-12-27] MEDS: FAMOTIDINE 20 MG TABLET PO (07:36)
[2024-12-27] MEDS: ASPIRIN 81 MG ENTERIC TABLET PO (07:36)
== END 2024-12-27 11:30 | disposition home or self-care (01) ==
LOC: ANHSURGERY 11:42 → ANH3MEDSUR 16:19
PROVIDERS: Physician Assistant Surgical; PCP Emergency Medicine; Visit Provider Orthopaedic Surgery
PROC: (CPT 27447; principal; 2024-12-26 12:00)
DX: M17.11 Unilateral primary osteoarthritis, right knee (principal); Z79.899 Other long term (current) drug therapy
CPT/HCPCS: 27447; 36415; 73560; 80048; 85025; 86850; 86900; 86901; 97110; 97161; 97165; C1776; A9270; C1713; J0171; J0690; J1100; J1885; J2270; J2405; J2704; J2795; J3010; J7120; J7512

== ENCOUNTER 2025-02-22 14:17 | Outpatient (CLI) | payer OTHER, SELFPAY ==
--- NOTE | ~2025-02-22 | XR_ITS ---
Right Knee Technique: AP, lateral, and sunrise views were obtained. Clinical History: Arthroplasty Findings: No fracture or dislocation is seen. Right knee arthroplasty in place. No hardware complicat ion.. Soft tissues are unremarkable. No joint effusion is seen. Impression: No acute abnormality. Right knee arthroplasty in place. Reviewed, dictated and finalized at location . Impression: No acute abnormality. Right knee arthroplasty in place.
== END 2025-02-22 14:18 | disposition home or self-care (01) ==
LOC: MICIMG 14:18
PROVIDERS: PCP Emergency Medicine; Visit Provider Orthopaedic Surgery
DX: Z96.651 Presence of right artificial knee joint (principal)
CPT/HCPCS: 73562